=== PATIENT | female | born 1980 | race Caucasian/White ===

== ENCOUNTER 2018-05-03 14:46 | Emergency (ER) | payer MEDICAID, SELFPAY ==
[2018-05-03 14:51] VITALS: BP 150/93; PULSE 119; RESP 16; TEMP 37; O2SAT 95
--- NOTE | 2018-05-03 15:12 | DI.RAD_ITS ---
SYMPTOMS/DIAGNOSIS: FALL, STRUCK AREA NEAR T7 THORACIC SPINE: AP and lateral views. There is normal alignment of the thoracic spine. No acute fractures or subluxations are seen. The paraspinal lines are intact. IMPRESSION: Negative examination.
--- NOTE | 2018-05-03 15:12 | W.ED.GENAD ---
Discharge Plan Disposition Patient Disposition: HOME Condition: Fair Discharge Details Chief Complaint: Nk/Back Pain Clinical Impression: Contusion of back Primary Care Provider: Magda Espitia ED Provider: Lydia Mead Home Meds and New Rx's Prescriptions: Continue fluticasone [Allergy Relief (fluticasone)] 50 mcg/actuation spray,suspension 2 spray CHAN DAILY Qty: 15.8 RF: 0 magnesium oxide 400 MG capsule 400 mg PO DAILY Qty: 90 RF: 0 fluticasone [Flovent HFA] 10.6 GM HFA aerosol inhaler 44 mcg Inhalation BID Qty: 1 RF: 3 insulin glargine [Lantus Solostar U-100 Insulin] 100 UNIT/1 ML insulin pen Sub-Q bid DIRECTED MDD 95 units Qty: 6 RF: 1 insulin lispro [Humalog KwikPen Insulin] 200 UNIT/1 ML insulin pen SQ AC as directed MDD 162 UNITS Qty: 15 RF: 3 pen needle, diabetic [Pen Needle] 1 EACH needle 1 ea Miscellaneous 6 times daily Qty: 540 RF: 3 blood sugar diagnostic [FreeStyle Lite Strips] 1 EACH strip 1 ea Miscellaneous 5-6 times daily Qty: 450 RF: 3 liraglutide [Victoza 2-Brennan] 0.6 MG/0.1 ML pen injector 1.8 mg SQ DAILY RF: 0 fluticasone [Flonase Allergy Relief] 9.9 ML spray,suspension 1 - 2 spray NS DAILY Qty: 1 RF: 1 albuterol sulfate [ProAir HFA] 8.5 GM HFA aerosol inhaler 2 puff Inhalation Q4H PRN Qty: 1 RF: 1 atorvastatin 40 MG tablet 40 mg PO DAILY Qty: 90 RF: 3 L norgest/e.estradiol-e.estrad [Amethia] 1 EACH tablets,dose pack,3 month 1 tab-cap PO DAILY Qty: 1 RF: 4 valacyclovir 500 MG tablet 500 mg PO DAILY Qty: 90 RF: 4 Ascorbic Acid [Vitamin C] 500 MG capsule 500 mg PO DAILY RF: 0 ferrous sulfate 325 MG tablet 325 mg PO DAILY RF: 0 pioglitazone [Actos] 15 MG tablet 15 mg PO DAILY RF: 0 citalopram 20 MG tablet 20 mg PO DAILY Qty: 30 RF: 5 metformin 1,000 MG tablet 1,000 mg PO BID Qty: 180 RF: 3 omeprazole 20 mg capsule,delayed release(DR/EC) 20 mg PO DAILY Qty: 90 RF: 3 ibuprofen 600 MG tablet 600 mg PO Q6H PRN PRN (Reason: Pain) Qty: 30 RF: 0 Discharge Instructions Instructions: Contusion in Adults (ED) Additional Instructions: Encourage hydration. Tylenol and/or ibuprofen as needed for discomfort. Heat or ice to affected area. You may try topical patch such as Salonpas or LIdoderm patches. Gentle stretching and frequent ambulation to prevent muscle spasm. If you develop change in urinary or bowel habits, altered sensation, difficulty walking, fever/chills or other new/worsening symptoms please seek care urgently once again. Please follow-up with primary care in 1 week if symptoms have not improved Referrals: Magda Espitia NP [Primary Care Provider] - Discharge Data Discharge Date/Time-TO BE ENTERED AT DEPARTURE: 05/03/18 16:09 Medical Decision Making Patient a 38-year-old female, accompanied by her mother, with chief complaint of back pain. She reports partially 1 hour prior to arrival she was stepping out of a truck. Reports that she stepped onto a running board that was wet, subsequently slipped and fell striking her mid back against the running board. On exam, she is primarily tender over the T7 area although she indicates diffuse discomfort. She is moving well. No antalgic gait. Sensation, reflexes and strength are equal bilaterally lower extremities. No incontinence. Patient had ibuprofen earlier today for menstrual discomfort. We will augment this with Tylenol and Lidoderm patch. I do not see any focal area of skin discoloration or evidence of trauma. No step-off noted with palpation. Plan to obtain plain imaging to evaluate. Discussed this plan with the patient who is in agreement X-ray reviewed by radiologist. No acute bony pathology noted. Discussed findings with patient and her mother. Advised, as the pain seems to be quite mild, she is no evidence of trauma on exam and negative x-ray, I do not feel that further intervention at this time is necessary. She seems quite relieved with the negative x-rays. I encouraged gentle stretching and ambulation. Encourage use of Tylenol and ibuprofen as needed for discomfort. Patient is feeling improved after above medications. We also discussed topical and home remedies that may help with symptomatic management. She was given strict return precautions. All of her questions and concerns were addressed and she is in agreement this plan. HPI General Mode of arrival: ambulatory. Date/Time Provider Initiated Documentation: 05/03/18 14:59. Limitations to Documentation: no limitations. Information obtained by: patient and family. History of Present Illness 38 year old F presents to the emergency department with the chief complaint of back pain after fall, described as moderate, with intensity rated at 5. Quality is described as aching, and is localized to the back. Patient reports no radiation. Patient started experiencing this hour(s) (1) and it has been constant. No relieving factors improve symptom(s), No exacerbating factors reported . Patient notes no other symptoms.; denies chest pain, cough, fever/chills, headaches, nausea/vomiting, rash and shortness of breath. Patient did receive the following treatments prior to arrival, NSAID (took ibuprofen prior to fall for menstrual discomfort) Related Data Home Medications Medication Instructions Recorded Confirmed magnesium oxide 400 mg PO DAILY #90 tab 05/24/14 05/03/18 fluticasone [Flovent HFA] 44 mcg INHALATION BID #1 inhaler 03/04/15 05/03/18 ibuprofen 600 mg PO Q6H PRN PRN #30 tab 06/20/16 05/03/18 insulin glargine [Lantus Solostar 0 SUB-Q bid DIRECTED #6 box MDD 01/07/17 04/11/18 U-100 Insulin] 95 units insulin lispro [Humalog KwikPen 0 SQ AC as directed #15 box MDD 01/10/17 04/11/18 Insulin] 162 UNITS pen needle, diabetic [Pen Needle] #540 ndl 03/08/17 04/11/18 blood sugar diagnostic [FreeStyle #450 strip 03/11/17 04/11/18 Lite Strips] albuterol sulfate [ProAir HFA] 2 puff INHALATION Q4H PRN #1 03/29/17 05/03/18 inhaler fluticasone [Flonase Allergy 1 - 2 spray NS DAILY #1 bottle 03/29/17 05/03/18 Relief] liraglutide [Victoza 2-Brennan] 1.8 mg SQ DAILY ml 03/29/17 05/03/18 atorvastatin 40 mg PO DAILY #90 tab-cap 06/27/17 05/03/18 L norgest/e.estradiol-e.estrad 1 tab-cap PO DAILY #1 pack 08/28/17 05/03/18 [Amethia] valacyclovir 500 mg PO DAILY #90 tab-cap 09/13/17 05/03/18 Ascorbic Acid [Vitamin C] 500 mg PO DAILY 11/18/17 05/03/18 ferrous sulfate 325 mg PO DAILY tab 11/18/17 05/03/18 pioglitazone [Actos] 15 mg PO DAILY tab-cap 02/06/18 05/03/18 citalopram 20 mg PO DAILY #30 tab 02/07/18 05/03/18 metformin 1,000 mg PO BID #180 tab-cap 02/28/18 05/03/18 omeprazole 20 mg capsule,delayed 20 mg PO DAILY #90 tab 03/27/18 05/03/18 release fluticasone 50 mcg/actuation nasal 2 spray CHAN DAILY #15.8 gm 04/11/18 05/03/18 spray,suspension Previous Rx's Medication Instructions Recorded ibuprofen 600 mg PO Q6H PRN PRN #30 tab 06/20/16 albuterol sulfate [ProAir HFA] 2 puff INHALATION Q4H PRN #1 03/29/17 inhaler fluticasone [Flonase Allergy 1 - 2 spray NS DAILY #1 bottle 03/29/17 Relief] atorvastatin 40 mg PO DAILY #90 tab-cap 06/27/17 L norgest/e.estradiol-e.estrad 1 tab-cap PO DAILY #1 pack 08/28/17 [Amethia] valacyclovir 500 mg PO DAILY #90 tab-cap 09/13/17 citalopram 20 mg PO DAILY #30 tab 02/07/18 metformin 1,000 mg PO BID #180 tab-cap 02/28/18 omeprazole 20 mg capsule,delayed 20 mg PO DAILY #90 tab 03/27/18 release fluticasone 50 mcg/actuation nasal 2 spray CHAN DAILY #15.8 gm 04/11/18 spray,suspension Allergies Allergy/AdvReac Type Severity Reaction Status Date / Time glipizide AdvReac Intermediate nausea, Unverified 05/03/18 14:54 vomiting, diarrhea prazosin AdvReac Unknown heart Unverified 05/03/18 14:54 palpitations General Stated Complaint: Nk/Back Pain FELIBERTO: 4 Review of Systems Constitutional Reports as per HPI and Denies headache(s) ENT Denies dizziness and Denies headache(s) Cardiovascular Reports as per HPI, Denies chest pain, Denies syncope, Denies dyspnea and Denies dyspnea on exertion Respiratory Reports as per HPI, Denies cough, Denies dyspnea and Denies dyspnea on exertion Gastrointestinal Denies abdominal pain, Denies nausea and Denies vomiting Genitourinary Denies urinary incontinence Musculoskeletal Reports as per HPI, Denies abnormal gait and Denies numbness Integumentary/Breasts Reports as per HPI, Denies erythema, Denies rash, Denies skin pain and Denies skin swelling Neurologic Reports as per HPI, Denies abnormal movements, Denies abnormal gait, Denies dizziness, Denies syncope, Denies headache(s), Denies lack of coordination, Denies focal weakness, Denies numbness and Denies radicular pain PFSH Social History adopted: No foster care: No household members: other details: lives w/ mom and dad and twins 5 at home number of children: 2 current occupational status: employed current occupation: [employer] Hx Recent Travel: No Smoking/Tobacco Use Status: Never alcohol intake: never substance use type: does not use seatbelt use: always Exam Const General: cooperative, healthy appearing, comfortable, no acute distress, well developed and well groomed Nutritional Appearance: well nourished and overweight Orientation: alert and awake [facility] Head: normal to inspection, normocephalic and atraumatic Ears: hearing grossly normal bilaterally Eyes General: appearance normal, both eyes and all related structures Neck Neck: normal visual inspection and full ROM Chest Chest: normal inspection of the chest, no crepitus, no localized rib tenderness and no tenderness Resp Effort & Inspection: normal respiratory effort, able to speak in complete sentences and no respiratory distress Auscultation: clear to auscultation bilaterally, no rales, no rhonchi and no wheezes Cardio Rate: regular rate Rhythm: regular rhythm Heart Sounds: S1 normal and S2 normal Back/Spine/Pelvis Back: no CVA tenderness Cervical Spine: normal cervical lordosis and cervical ROM normal Thoracic/Lumbar Spine: No thoracic and lumbar spine normal to inspection (Patient is diffusely tender over the thoracic spine wrapping laterally. Point tender midline over the T7 area. No swelling, ecchymosis, break in the skin. ), thoraco-lumbar ROM normal, pain with thoraco-lumbar ROM (patient has some discomfort with forward flexion), No paraspinal tenderness and No thoraco-lumbar ROM limited Skin General skin exam: no rashes or lesions noted Neuro General: alert, awake and oriented x3 Cognition: normal cognition Speech: speech normal Gait: normal gait Motor: muscle tone normal throughout and strength 5/5 throughout Sensory Exam: no sensory deficits noted (no saddle paresthesias) Extrem General: normal to inspection (strength, sensation and reflexes equal bilaterally) Psych Appearance: grossly normal and well kempt Mental Status: mental status grossly normal Speech and Movement: speech and movement normal Course Vital Signs Temperature 37 C 05/03/18 14:51 Pulse 119 H 05/03/18 14:51 Respiratory Rate 16 05/03/18 14:51 Blood Pressure 150/93 H 05/03/18 14:51 Pulse Oximetry 95 05/03/18 14:51 Temperature 37 C 05/03/18 14:51 Temperature Source Skin 05/03/18 14:51 Pulse 119 H 05/03/18 14:51 Respiratory Rate 16 05/03/18 14:51 Respiratory Effort 05/03/18 14:51 Blood Pressure 150/93 H 05/03/18 14:51 Pulse Oximetry 95 05/03/18 14:51 Oxygen Delivery Method Room Air 05/03/18 14:51 Oxygen Flow Rate 0 05/03/18 14:51 Pain Level 5 05/03/18 15:00
--- NOTE | 2018-05-03 15:15 | ED.GENADUL_ITS ---
Discharge Plan Disposition Patient Disposition: HOME Condition: Fair Discharge Details Chief Complaint: Nk/Back Pain Clinical Impression: Contusion of back Primary Care Provider: Magda Espitia ED Provider: Lydia Mead Home Meds and New Rx's Prescriptions: Continue fluticasone [Allergy Relief (fluticasone)] 50 mcg/actuation spray,suspension 2 spray CHAN DAILY Qty: 15.8 RF: 0 magnesium oxide 400 MG capsule 400 mg PO DAILY Qty: 90 RF: 0 fluticasone [Flovent HFA] 10.6 GM HFA aerosol inhaler 44 mcg Inhalation BID Qty: 1 RF: 3 insulin glargine [Lantus Solostar U-100 Insulin] 100 UNIT/1 ML insulin pen Sub-Q bid DIRECTED MDD 95 units Qty: 6 RF: 1 insulin lispro [Humalog KwikPen Insulin] 200 UNIT/1 ML insulin pen SQ AC as directed MDD 162 UNITS Qty: 15 RF: 3 pen needle, diabetic [Pen Needle] 1 EACH needle 1 ea Miscellaneous 6 times daily Qty: 540 RF: 3 blood sugar diagnostic [FreeStyle Lite Strips] 1 EACH strip 1 ea Miscellaneous 5-6 times daily Qty: 450 RF: 3 liraglutide [Victoza 2-Brennan] 0.6 MG/0.1 ML pen injector 1.8 mg SQ DAILY RF: 0 fluticasone [Flonase Allergy Relief] 9.9 ML spray,suspension 1 - 2 spray NS DAILY Qty: 1 RF: 1 albuterol sulfate [ProAir HFA] 8.5 GM HFA aerosol inhaler 2 puff Inhalation Q4H PRN Qty: 1 RF: 1 atorvastatin 40 MG tablet 40 mg PO DAILY Qty: 90 RF: 3 L norgest/e.estradiol-e.estrad [Amethia] 1 EACH tablets,dose pack,3 month 1 tab-cap PO DAILY Qty: 1 RF: 4 valacyclovir 500 MG tablet 500 mg PO DAILY Qty: 90 RF: 4 Ascorbic Acid [Vitamin C] 500 MG capsule 500 mg PO DAILY RF: 0 ferrous sulfate 325 MG tablet 325 mg PO DAILY RF: 0 pioglitazone [Actos] 15 MG tablet 15 mg PO DAILY RF: 0 citalopram 20 MG tablet 20 mg PO DAILY Qty: 30 RF: 5 metformin 1,000 MG tablet 1,000 mg PO BID Qty: 180 RF: 3 omeprazole 20 mg capsule,delayed release(DR/EC) 20 mg PO DAILY Qty: 90 RF: 3 ibuprofen 600 MG tablet 600 mg PO Q6H PRN PRN (Reason: Pain) Qty: 30 RF: 0 Discharge Instructions Instructions: Contusion in Adults (ED) Additional Instructions: Encourage hydration. Tylenol and/or ibuprofen as needed for discomfort. Heat or ice to affected area. You may try topical patch such as Salonpas or LIdoderm patches. Gentle stretching and frequent ambulation to prevent muscle spasm. If you develop change in urinary or bowel habits, altered sensation, difficulty walking, fever/chills or other new/worsening symptoms please seek care urgently once again. Please follow-up with primary care in 1 week if symptoms have not improved Referrals: Magda Espitia NP [Primary Care Provider] - Discharge Data Discharge Date/Time-TO BE ENTERED AT DEPARTURE: 05/03/18 16:09 Medical Decision Making Patient a 38-year-old female, accompanied by her mother, with chief complaint of back pain. She reports partially 1 hour prior to arrival she was stepping out of a truck. Reports that she stepped onto a running board that was wet, subsequently slipped and fell striking her mid back against the running board. On exam, she is primarily tender over the T7 area although she indicates diffuse discomfort. She is moving well. No antalgic gait. Sensation, reflexes and strength are equal bilaterally lower extremities. No incontinence. Patient had ibuprofen earlier today for menstrual discomfort. We will augment this with Tylenol and Lidoderm patch. I do not see any focal area of skin discoloration or evidence of trauma. No step-off noted with palpation. Plan to obtain plain imaging to evaluate. Discussed this plan with the patient who is in agreement X-ray reviewed by radiologist. No acute bony pathology noted. Discussed findings with patient and her mother. Advised, as the pain seems to be quite mild, she is no evidence of trauma on exam and negative x-ray, I do not feel that further intervention at this time is necessary. She seems quite relieved with the negative x-rays. I encouraged gentle stretching and ambulation. Encourage use of Tylenol and ibuprofen as needed for discomfort. Patient is feeling improved after above medications. We also discussed topical and home remedies that may help with symptomatic management. She was given strict return precautions. All of her questions and concerns were addressed and she is in agreement this plan. HPI General Mode of arrival: ambulatory . Date/Time Provider Initiated Documentation: 05/03/18 14:59 . Limitations to Documentation: no limitations . Information obtained by: patient and family . History of Present Illness 38 year old F presents to the emergency department with the chief complaint of back pain after fall, described as moderate, with intensity rated at 5. Quality is described as aching, and is localized to the back. Patient reports no radiation. Patient started experiencing this hour(s) (1) and it has been constant. No relieving factors improve symptom(s), No exacerbating factors reported . Patient notes no other symptoms.; denies chest pain, cough , fever/chills, headaches, nausea/vomiting, rash and shortness of breath. Patient did receive the following treatments prior to arrival, NSAID (took ibuprofen prior to fall for menstrual discomfort) Related Data Home Medications Medication Instructions Recorded Confirmed magnesium oxide 400 mg PO DAILY #90 tab 05/24/14 05/03/18 fluticasone [Flovent HFA] 44 mcg INHALATION BID #1 inhaler 03/04/15 05/03/18 ibuprofen 600 mg PO Q6H PRN PRN #30 tab 06/20/16 05/03/18 insulin glargine [Lantus Solostar 0 SUB-Q bid DIRECTED #6 box MDD 01/07/17 U-100 Insulin] 95 units insulin lispro [Humalog KwikPen 0 SQ AC as directed #15 box MDD 01/10/17 Insulin] 162 UNITS pen needle, diabetic [Pen Needle] #540 ndl 03/08/17 04/11/18 blood sugar diagnostic [FreeStyle #450 strip 03/11/17 04/11/18 Lite Strips] albuterol sulfate [ProAir HFA] 2 puff INHALATION Q4H PRN #1 03/29/17 05/03/18 inhaler fluticasone [Flonase Allergy 1 - 2 spray NS DAILY #1 bottle 03/29/17 05/03/18 Relief] liraglutide [Victoza 2-Brennan] 1.8 mg SQ DAILY ml 03/29/17 05/03/18 atorvastatin 40 mg PO DAILY #90 tab-cap 06/27/17 05/03/18 L norgest/e.estradiol-e.estrad 1 tab-cap PO DAILY #1 pack 08/28/17 05/03/18 [Amethia] valacyclovir 500 mg PO DAILY #90 tab-cap 09/13/17 05/03/18 Ascorbic Acid [Vitamin C] 500 mg PO DAILY 11/18/17 05/03/18 ferrous sulfate 325 mg PO DAILY tab 11/18/17 05/03/18 pioglitazone [Actos] 15 mg PO DAILY tab-cap 02/06/18 05/03/18 citalopram 20 mg PO DAILY #30 tab 02/07/18 05/03/18 metformin 1,000 mg PO BID #180 tab-cap 02/28/18 05/03/18 omeprazole 20 mg capsule,delayed 20 mg PO DAILY #90 tab 03/27/18 05/03/18 release fluticasone 50 mcg/actuation nasal 2 spray CHAN DAILY #15.8 gm 04/11/18 05/03/18 spray,suspension Previous Rx's Medication Instructions Recorded ibuprofen 600 mg PO Q6H PRN PRN #30 tab 06/20/16 albuterol sulfate [ProAir HFA] 2 puff INHALATION Q4H PRN #1 03/29/17 inhaler fluticasone [Flonase Allergy 1 - 2 spray NS DAILY #1 bottle 03/29/17 Relief] atorvastatin 40 mg PO DAILY #90 tab-cap 06/27/17 L norgest/e.estradiol-e.estrad 1 tab-cap PO DAILY #1 pack 08/28/17 [Amethia] valacyclovir 500 mg PO DAILY #90 tab-cap 09/13/17 citalopram 20 mg PO DAILY #30 tab 02/07/18 metformin 1,000 mg PO BID #180 tab-cap 02/28/18 omeprazole 20 mg capsule,delayed 20 mg PO DAILY #90 tab 03/27/18 release fluticasone 50 mcg/actuation nasal 2 spray CHAN DAILY #15.8 gm 04/11/18 spray,suspension Allergies Allergy/AdvReac Type Severity Reaction Status Date / Time glipizide AdvReac Intermediate nausea, Unverified 05/03/18 14:54 vomiting, diarrhea prazosin AdvReac Unknown heart Unverified 05/03/18 14:54 palpitations General Stated Complaint: Nk/Back Pain FELIBERTO: 4 Review of Systems Constitutional Reports as per HPI and Denies headache(s) ENT Denies dizziness and Denies headache(s) Cardiovascular Reports as per HPI, Denies chest pain, Denies syncope, Denies dyspnea and Denies dyspnea on exertion Respiratory Reports as per HPI, Denies cough, Denies dyspnea and Denies dyspnea on exertion Gastrointestinal Denies abdominal pain, Denies nausea and Denies vomiting Genitourinary Denies urinary incontinence Musculoskeletal Reports as per HPI, Denies abnormal gait and Denies numbness Integumentary/Breasts Reports as per HPI, Denies erythema, Denies rash, Denies skin pain and Denies skin swelling Neurologic Reports as per HPI, Denies abnormal movements, Denies abnormal gait, Denies dizziness, Denies syncope, Denies headache(s), Denies lack of coordination, Denies focal weakness, Denies numbness and Denies radicular pain PFSH Social History adopted: No foster care: No household members: other details: lives w/ mom and dad and twins 5 at home number of children: 2 current occupational status: employed current occupation: [employer] Hx Recent Travel: No Smoking/Tobacco Use Status: Never alcohol intake: never substance use type: does not use seatbelt use: always Exam Const General: cooperative, healthy appearing, comfortable, no acute distress, well developed and well groomed Nutritional Appearance: well nourished and overweight Orientation: alert and awake [facility] Head: normal to inspection, normocephalic and atraumatic Ears: hearing grossly normal bilaterally Eyes General: appearance normal, both eyes and all related structures Neck Neck: normal visual inspection and full ROM Chest Chest: normal inspection of the chest, no crepitus, no localized rib tenderness and no tenderness Resp Effort & Inspection: normal respiratory effort, able to speak in complete sentences and no respiratory distress Auscultation: clear to auscultation bilaterally, no rales, no rhonchi and no wheezes Cardio Rate: regular rate Rhythm: regular rhythm Heart Sounds: S1 normal and S2 normal Back/Spine/Pelvis Back: no CVA tenderness Cervical Spine: normal cervical lordosis and cervical ROM normal Thoracic/Lumbar Spine: No thoracic and lumbar spine normal to inspection ( Patient is diffusely tender over the thoracic spine wrapping laterally. Point tender midline over the T7 area. No swelling, ecchymosis, break in the skin. ), thoraco-lumbar ROM normal, pain with thoraco-lumbar ROM (patient has some discomfort with forward flexion), No paraspinal tenderness and No thoraco- lumbar ROM limited Skin General skin exam: no rashes or lesions noted Neuro General: alert, awake and oriented x3 Cognition: normal cognition Speech: speech normal Gait: normal gait Motor: muscle tone normal throughout and strength 5/5 throughout Sensory Exam: no sensory deficits noted (no saddle paresthesias) Extrem General: normal to inspection (strength, sensation and reflexes equal bilaterally) Psych Appearance: grossly normal and well kempt Mental Status: mental status grossly normal Speech and Movement: speech and movement normal Course Vital Signs Temperature 37 C 05/03/18 14:51 Pulse 119 H 05/03/18 14:51 Respiratory Rate 16 05/03/18 14:51 Blood Pressure 150/93 H 05/03/18 14:51 Pulse Oximetry 95 05/03/18 14:51 Temperature 37 C 05/03/18 14:51 Temperature Source Skin 05/03/18 14:51 Pulse 119 H 05/03/18 14:51 Respiratory Rate 16 05/03/18 14:51 Respiratory Effort 05/03/18 14:51 Blood Pressure 150/93 H 05/03/18 14:51 Pulse Oximetry 95 05/03/18 14:51 Oxygen Delivery Method Room Air 05/03/18 14:51 Oxygen Flow Rate 0 05/03/18 14:51 Pain Level 5 05/03/18 15:00
[2018-05-03] MEDS: Acetaminophen 500 MG TAB 1000 MG PO (15:18)
[2018-05-03] MEDS: Lidocaine 5% Patch 1 PATCH TP (15:18)
--- NOTE | 2018-05-03 15:44 | DI.VRAD_ITS ---
EXAM: XR Thoracic Spine, 3 Views EXAM DATE/TIME: 05/03/2018 3:32 PM CLINICAL HISTORY: 38 years old, female; Pain; Pain in thoracic spine; Patient HX: Per PT: Fell out of truck onto running board; Struck area near t7 TECHNIQUE: XR of the thoracic spine, 3 views. COMPARISON: [facility] 06/20/2016 5:07 PM FINDINGS: No acute fracture. No subluxation. Paraspinous soft tissues unremarkable. IMPRESSION: No evidence of acute bony abnormality. Dictated and Authenticated by: Viral Barboza MD. Ordering:BARBARA VALDES MD
== END 2018-05-03 16:09 | disposition home or self-care (01) ==
PROVIDERS: Emergency Provider Physician Assistant; PCP Nurse Practitioner
DX: S20.229A Contusion of unspecified back wall of thorax, initial encounter (principal); W17.81XA Fall down embankment (hill), initial encounter
CPT/HCPCS: 99283; 72072; 99282

== ENCOUNTER 2018-08-26 08:42 | Outpatient (RCR) | payer SELFPAY | END 2018-08-28 23:59 | disposition home or self-care (01) | LOC: CR 08:42 | PROVIDERS: PCP Nurse Practitioner; Visit Provider Family Medicine | DX: Z51.89 Encounter for other specified aftercare (principal) ==

== ENCOUNTER 2018-09-11 13:19 | Outpatient (RCR) | payer SELFPAY ==
--- NOTE | 2018-11-25 09:42 | PR3E_ITS ---
38 year old female referred to our 8 week diabetes exercise program in August 2018 by primary care provider. Patient was scheduled for 8 exercise sessions from 09/02/18 - 09/25/18, of which she attended 3, then did not return. Patient had joined program and started same time as her mother. Both attended 3 sessions together; both stopped attending thereafter. The patient is being discharged from the Diabetes Program. We will assist her again in the future, with a physicians referral, should she need more structure in developing an exercise routine/habits.
== END 2018-09-28 23:59 | disposition home or self-care (01) ==
LOC: CR 13:19
PROVIDERS: PCP Nurse Practitioner; Visit Provider Family Medicine
DX: Z51.89 Encounter for other specified aftercare (principal)

== ENCOUNTER 2018-09-30 03:30 | Outpatient (RCR) | payer SELFPAY | END 2018-10-28 23:59 | disposition home or self-care (01) | LOC: CR 03:30 | PROVIDERS: PCP Nurse Practitioner; Visit Provider Family Medicine | DX: Z51.89 Encounter for other specified aftercare (principal) ==

== ENCOUNTER 2018-12-03 08:22 | Outpatient (CLI) | payer MEDICAID, SELFPAY ==
[2018-12-03 09:37] LABS: COMMENT (LAB VIEW ONLY) 222.58 mg/dL; Microalb ug/mg Crea 8.7 ug/mg Cr
[2018-12-03 09:38] LABS: ALT 43 U/L (12-78); AST 36 U/L (15-37); Albumin 3.5 g/dL (3.4-5.0); Alkaline Phosphatase 123 U/L (46-116); Anion Gap 12.4 mmol/L (3-11); BUN 10 mg/dL (7-18); Bilirubin, Total 0.8 mg/dL (0.2-1.0); CO2 23.6 mmol/L (21.0-32.0); CREATININE 0.74 mg/dL (0.55-1.02); Calcium 8.8 mg/dL (8.5-10.1); Calculated LDL 77; Chloride 100 mmol/L (98-107); Cholesterol 146 mg/dL (50-200); Glucose 298 mg/dL (70-100); HDL Cholesterol 33 mg/dL (40-60); Potassium 4.1 mmol/L (3.5-5.1); Sodium 136 mmol/L (136-145); Triglyceride 182 mg/dL (30-150)
== END 2018-12-03 08:42 ==
PROVIDERS: PCP Nurse Practitioner; Visit Provider Nurse Practitioner
DX: E11.9 Type 2 diabetes mellitus without complications (principal); E78.5 Hyperlipidemia, unspecified
CPT/HCPCS: 36415; 80053; 80061; 83721; 82043; 82570

== ENCOUNTER 2019-01-15 17:26 | Outpatient (REF) | payer MEDICAID, SELFPAY ==
[2019-01-19 14:52] LABS: Chlamydia Result Negative; GC Result Negative; Specimen Description CERVIX
== END 2019-01-15 17:46 ==
LOC: LBN 17:26
PROVIDERS: PCP Nurse Practitioner; Visit Provider Nurse Practitioner Women's Health
DX: Z11.3 Encounter for screening for infections with a predominantly sexual mode of transmission (principal)
CPT/HCPCS: 87491; 87591

== ENCOUNTER 2019-01-22 07:05 | Outpatient (CLI) | payer MEDICAID, SELFPAY ==
[2019-01-22 07:25] LABS: Mean Corp. HGB Concentration 33.3 g/dL (32.0-36.0); Mean Corpuscular Hemoglobin 30.8 pg (27.0-33.0); Mean Corpuscular Volume 92.3 fL (80-95); Mean Platelet Volume 9.8 fL (8.0-11.0); Platelet Count 324 x1000/uL (130-400); RBC 4.55 m/cumm (4.00-5.20); RBC Distribution Width 12.7 % (11.7-14.6); White Blood Cell Count 6.63 k/cumm (4.4-10.8)
[2019-01-22 08:56] LABS: ESR 27 mm/hr (0-20)
[2019-01-22 10:35] LABS: ALT 44 U/L (12-78); AST 36 U/L (15-37); Albumin 3.4 g/dL (3.4-5.0); Alkaline Phosphatase 130 U/L (46-116); Anion Gap 12.5 mmol/L (3-11); BUN 10 mg/dL (7-18); Bilirubin, Total 0.7 mg/dL (0.2-1.0); CO2 21.5 mmol/L (21.0-32.0); CREATININE 0.78 mg/dL (0.55-1.02); Chloride 102 mmol/L (98-107); Ferritin 104 ng/mL (8-388); Glucose 336 mg/dL (70-100); Potassium 4.5 mmol/L (3.5-5.1); Sodium 136 mmol/L (136-145); TSH (W/Ref FT4) 1.63 uIU/mL (0.36-3.74); Total Protein 6.6 g/dL (6.4-8.2); Vitamin B12 801 pg/mL (193-986)
[2019-01-23 10:54] LABS: Lyme Ab w Rflx to Lyme Confirm Negative
== END 2019-01-22 07:25 ==
PROVIDERS: PCP Nurse Practitioner; Visit Provider Nurse Practitioner
DX: M25.50 Pain in unspecified joint (principal); R07.89 Other chest pain; R53.83 Other fatigue; R60.9 Edema, unspecified; I10 Essential (primary) hypertension
CPT/HCPCS: 36415; 80053; 85027; 85652; 82607; 82728; 84443; 86618

== ENCOUNTER 2019-03-19 00:53 | Outpatient (CLI) | payer MEDICAID, SELFPAY ==
--- NOTE | 2019-03-19 07:52 | DI.US_ITS ---
EXAM: US PELVIS TRANSVAGINAL CLINICAL HISTORY: AUB, polyp at cervix,N93.9,N84.1. TECHNIQUE: Ultrasound performed using standard protocol. COMPARISON: from 02/04/2017 FINDINGS: Uterus measures 6.3 cm in length, 2.7 cm in height and 4.0 cm in width with an endometrial stripe thi ckness of 11 mm. There is an apparent 9 x 6 x 9 mm fundal fibroid. The right ovary measures 3 x 2.1 x 1.8 cm and contains a 2.3 x 1.8 x 1.6 cm cyst. The left ovary hay sures 1.9 x 1.0 x 1.3 cm. The right kidney measures 11 cm., The left kidney measures 13.4 cm. There i s no evidence of hydronephrosis. There is no evidence of pelvic free fluid. IMPRESSION: A small fundal fibroid is demonstrated and there is a 2.3 x 1.8 x 1.6 cm right ovarian cyst.
== END 2019-03-19 01:13 ==
PROVIDERS: PCP Nurse Practitioner; Visit Provider Nurse Practitioner Women's Health
DX: N84.1 Polyp of cervix uteri (principal); N93.9 Abnormal uterine and vaginal bleeding, unspecified; D25.9 Leiomyoma of uterus, unspecified; N83.291 Other ovarian cyst, right side
CPT/HCPCS: 76830; 76856

== ENCOUNTER 2019-04-01 10:28 | Outpatient (CLI) | payer MEDICAID, SELFPAY ==
--- NOTE | 2019-04-01 10:30 | DI.RAD_ITS ---
EXAM: XR HIP LT COMPLETE AP PELVIS INDICATION: Left hip pain for 2 days, no injury M25.552. COMPARISON: PELVIS AP from 06/20/2016 TECHNIQUE: 2D digital imaging was performed. FINDINGS: The left hip is well maintained. The bones are normally mineralized. No suspicious lytic or sclerot ic lesion is identified. Sacroiliac joints and symphysis pubis are well maintained. The soft tissue s are unremarkable. IMPRESSION: No acute abnormality.
== END 2019-04-01 10:48 ==
PROVIDERS: PCP Nurse Practitioner; Visit Provider Nurse Practitioner
DX: M25.552 Pain in left hip (principal)
CPT/HCPCS: 73502

== ENCOUNTER 2019-05-03 09:53 | Emergency (ER) | payer MEDICAID, SELFPAY ==
[2019-05-03 10:03] VITALS: BP 138/84; PULSE 100; RESP 16; TEMP 36.4; O2SAT 99
--- NOTE | 2019-05-03 10:16 | ED.GENADUL_ITS ---
Discharge Plan Disposition Patient Disposition: HOME Condition: Improving Discharge Details Chief Complaint: Nk/Back Pain Clinical Impression: Back pain, Muscle spasm Primary Care Provider: Magda Espitia ED Provider: Lydia eMad Home Meds and New Rx's Prescriptions: New cyclobenzaprine 10 mg tablet 10 mg PO TID PRN (Reason: muscle spasm) Qty: 14 RF: 0 Continued citalopram 40 mg tablet 40 mg PO DAILY Qty: 90 RF: 3 L norgest/e.estradiol-e.estrad [Camrese] 0.15 mg-30 mcg (84)/10 mcg (7) tablets,dose pack,3 month 1 tab PO DAILY Qty: 91 RF: 5 trazodone 50 mg tablet 50 mg PO HS PRN (Reason: insomnia) Qty: 90 RF: 3 albuterol sulfate [ProAir HFA] 90 mcg/actuation HFA aerosol inhaler 2 puff Inhalation Q4H PRN Qty: 1 RF: 1 (DME) pen needle, diabetic [Pen Needle] 31 gauge x 5/16 needle 1 ea Miscellaneous 6 times daily Qty: 550 RF: 3 (DME) FreeStyle Lite Strips strip 1 ea Miscellaneous 5-6 times daily Qty: 450 RF: 3 fluticasone propionate [Allergy Relief (fluticasone)] 50 mcg/actuation spray,suspension 2 spray CHAN DAILY Qty: 15.8 RF: 0 ondansetron HCl [Zofran] 4 mg tablet 4 mg PO QID PRN (Reason: nausea and vomiting) Qty: 20 RF: 0 Humalog KwikPen Insulin 200 unit/mL (3 mL) insulin pen 20 unit subcut TID MDD 162 UNITS Qty: 15 RF: 12 Victoza 2-Brennan 0.6 mg/0.1 mL (18 mg/3 mL) pen injector 1.8 mg subcut DAILY Qty: 6 RF: 12 magnesium oxide 400 MG capsule 400 mg PO DAILY Qty: 90 RF: 0 valacyclovir 500 MG tablet 500 mg PO DAILY Qty: 90 RF: 4 Ascorbic Acid [Vitamin C] 500 MG capsule 500 mg PO DAILY RF: 0 ferrous sulfate 325 MG tablet 325 mg PO DAILY RF: 0 pioglitazone [Actos] 15 MG tablet 15 mg PO DAILY RF: 0 omeprazole 20 mg capsule,delayed release(DR/EC) 20 mg PO DAILY Qty: 90 RF: 3 Lantus Solostar U-100 Insulin 100 unit/mL (3 mL) insulin pen See Rx Instructions Sub-Q BID MDD 95 units Qty: 15 RF: 3 atorvastatin 40 mg tablet 40 mg PO DAILY Qty: 90 RF: 3 fluconazole [Diflucan] 150 mg tablet 150 mg PO ONCE Qty: 1 RF: 1 metformin 1,000 mg tablet 1,000 mg PO BID Qty: 180 RF: 3 ibuprofen 600 MG tablet 600 mg PO Q6H PRN PRN (Reason: Pain) Qty: 30 RF: 0 Discharge Instructions Instructions: Muscle Spasm (ED), Back Pain (ED) Additional Instructions: Encourage hydration. Tylenol and/or ibuprofen as needed for discomfort. Flexeril as prescribed to help with muscle spasm. Please do not drive will take this medication. May make you fatigued. Please encourage frequent walking and gentle stretching. You may continue with topical patches such as Salonpas or Lidoderm as needed for discomfort. Please avoid heavy lifting and activities that greatly increase her discomfort. Please follow-up with primary care in 1 week if not improved. If you develop fever/chills, increased pain, weakness or other new/worsening symptoms please seek care urgently once again. Stand Alone Forms: Work Release Referrals: Magda Espitia NP [Primary Care Provider] - Medical Decision Making Patient is a 39 year old female presenting today with c/c of low back pain. States that yesterday it felt tight. No recent trauma. Reports that 1 hour prior to arrival, she bent forward to unhook her dog's collar when she had a gaston dden onset of pain that radiated across the entire lumbar spine. Did not fall. Denies any altered sensation. No difficulty with ambulation. States the pain is now a 10 out of 10. Particularly painful with forward flexion. States the pain does radiate into the buttock bilaterally. Patient was seen here one year ago after fall and trauma to htis area but she denies residual pain since then. No recent illness, no fevers/chills. No GI upset. Denies change in urainry or bowel habits. On exam, patient is resting comfortably. She does feel tight and has tenderness with palpation reviewed the lumbar spine does not endorse any midline or paraspinal tenderness. Her history and exam is most consistent with muscle spasm. She has no saddle paresthesias, no evidence of cauda equina or other e mergent surgical pathology. Patient was given Tylenol, ibuprofen, Valium and a Lidoderm patch reports that pain is now down to 5 out of 10. She finds mobility more easy. Appears to be moving well about the room. She is currently requesting discharge. She is given strict return precautions. We will continue with the muscle relaxer. Advised that she may not drive while taking this. I encouraged hydration. We discussed home and fzzd-smm-ahmepco medications that can help with analgesics. Advise follow-up with primary care at the end of the week if not improving. All of her questions and concerns were addressed she is in agreement this plan. [facility] General Mode of arrival: ambulatory . Date/Time Provider Initiated Documentation: 05/03/19 10:13 . Limitations to Documentation: no limitations . Information obtained by: patient, family (signifciant other) and RN notes reviewed . History of Present Illness 39 year old F presents to the emergency department with the chief complaint of low back pain, described as severe, with intensity rated at 10. Quality is described as stabbing, and is localized to the back. Patient reports radiation to (into buttock bilater ally). Patient started experiencing this hour(s) (1) and it has been constant. Immobilization improves symptom(s), Movement worsens symptoms . Patient notes no other symptoms.. Patient did receive the following treatments prior to arrival, none Related Data Home Medications Medication Instructions Recorded Confirmed magnesium oxide 400 mg PO DAILY #90 tab 05/24/14 05/03/19 ibuprofen 600 mg PO Q6H PRN PRN #30 tab 06/20/16 05/03/19 valacyclovir 500 mg PO DAILY #90 tab-cap 09/13/17 05/03/19 Ascorbic Acid [Vitamin C] 500 mg PO DAILY 11/18/17 05/03/19 ferrous sulfate 325 mg PO DAILY tab 11/18/17 05/03/19 pioglitazone [Actos] 15 mg PO DAILY tab-cap 02/06/18 05/03/19 omeprazole 20 mg capsule,delayed 20 mg PO DAILY #90 tab 03/27/18 05/03/19 release fluticasone propionate 50 2 spray CHAN DAILY #15.8 gm 04/11/18 05/03/19 mcg/actuation nasal spray,suspension albuterol sulfate 90 mcg/actuation 2 puff INHALATION Q4H PRN #1 06/09/18 05/03/19 aerosol inhaler inhaler blood sugar diagnostic #450 strip 06/09/18 04/01/19 pen needle, diabetic 31 gauge x #550 each 06/09/18 04/01/1911/13 trazodone 50 mg tablet 50 mg PO HS PRN #90 tab 06/09/18 05/03/19 insulin glargine 100 unit/mL (3 See Rx Instructions SUB-Q BID #15 09/05/18 05/03/19 mL) subcutaneous pen ml MDD 95 units atorvastatin 40 mg tablet 40 mg PO DAILY #90 tab-cap 09/29/18 05/03/19 citalopram 40 mg tablet 40 mg PO DAILY #90 tab 10/22/18 05/03/19 ondansetron HCl 4 mg tablet 4 mg PO QID PRN #20 tab 11/18/18 05/03/19 insulin lispro 200 unit/mL (3 mL) 20 unit SUBCUT TID #15 ml MDD 162 12/02/18 05/03/19 subcutaneous pen UNITS liraglutide 0.6 mg/0.1 mL (18 mg/3 1.8 mg SUBCUT DAILY #6 ml 12/02/18 05/03/19 mL) subcutaneous pen injector L norgest/e.estradiol-e.estrad 1 tab PO DAILY #91 dose pk 01/15/19 05/03/19 0.15 mg-30 mcg (84)/10 mcg(7) tabs,3mos fluconazole 150 mg tablet 150 mg PO ONCE #1 tab 02/13/19 05/03/19 metformin 1,000 mg tablet 1,000 mg PO BID #180 tab-cap 04/27/19 05/03/19 cyclobenzaprine 10 mg PO TID PRN #14 tab 05/03/19 Previous Rx's Medication Instructions Recorded ibuprofen 600 mg PO Q6H PRN PRN #30 tab 06/20/16 valacyclovir 500 mg PO DAILY #90 tab-cap 09/13/17 omeprazole 20 mg capsule,delayed 20 mg PO DAILY #90 tab 03/27/18 release fluticasone propionate 50 2 spray CHAN DAILY #15.8 gm 04/11/18 mcg/actuation nasal spray,suspension albuterol sulfate 90 mcg/actuation 2 puff INHALATION Q4H PRN #1 06/09/18 aerosol inhaler inhaler blood sugar diagnostic #450 strip 06/09/18 pen needle, diabetic 31 gauge x #550 each 06/09/18 5/16 trazodone 50 mg tablet 50 mg PO HS PRN #90 tab 06/09/18 insulin glargine 100 unit/mL (3 See Rx Instructions SUB-Q BID #15 09/05/18 mL) subcutaneous pen ml MDD 95 units atorvastatin 40 mg tablet 40 mg PO DAILY #90 tab-cap 09/29/18 citalopram 40 mg tablet 40 mg PO DAILY #90 tab 10/22/18 ondansetron HCl 4 mg tablet 4 mg PO QID PRN #20 tab 11/18/18 insulin lispro 200 unit/mL (3 mL) 20 unit SUBCUT TID #15 ml MDD 162 12/02/18 subcutaneous pen UNITS liraglutide 0.6 mg/0.1 mL (18 mg/3 1.8 mg SUBCUT DAILY #6 ml 12/02/18 mL) subcutaneous pen injector L norgest/e.estradiol-e.estrad 1 tab PO DAILY #91 dose pk 01/15/19 0.15 mg-30 mcg (84)/10 mcg(7) tabs,3mos fluconazole 150 mg tablet 150 mg PO ONCE #1 tab 02/13/19 metformin 1,000 mg tablet 1,000 mg PO BID #180 tab-cap 04/27/19 cyclobenzaprine 10 mg PO TID PRN #14 tab 05/03/19 Allergies Allergy/AdvReac Type Severity Reaction Status Date / Time glipizide AdvReac Intermediate nausea, Verified 05/03/19 10:05 vomiting, diarrhea prazosin AdvReac Unknown heart Verified 05/03/19 10:05 palpitations General Stated Complaint: Nk/Back Pain FELIBERTO: 4 Review of Systems Constitutional Constitutional: Reports as per HPI, Denies chills, Denies fatigue, Denies fever(s), Denies frequent falls and Denies headache(s) Eyes Eyes: Denies change in vision ENT Ears, Nose, Mouth, and Throat: Denies headache(s) Cardiovascular Cardiovascular: Denies chest pain, Denies dyspnea and Denies dyspnea on exertion Respiratory Respiratory: Denies cough, Denies dyspnea and Denies dyspnea on exertion Gastrointestinal Gastrointestinal: Denies abdominal pain, Denies change in bowel habits and Denies fecal incontinence Genitourinary Genitourinary: Reports as per HPI, Denies urinary incontinence and Denies urinary hesitancy Musculoskeletal Musculoskeletal: Reports as per HPI, Reports back pain, Denies muscle weakness, Denies numbness, Denies radiating pain into limb, Reports stiffness and Denies tingling Integumentary/Breasts Skin/Breast: Reports as per HPI and Denies rash Neurologic Neurologic: Reports as per HPI, Denies frequent falls, Denies headache(s), Denies focal weakness, Denies numbness, Denies radicular pain, Denies sensory deficit, Denies tingling and Denies paresthesias Endocrine Endocrine: Denies fatigue [facility] Medical History Cervical polyp (Acute) Diabetes mellitus (Acute 10/15/12) A1C goal 7; Diagnosed in HS Elev transaminase/LDH (Inactive 07/11/11) 0606-1142 GI CA: Fatty Liver, AST 113, ALT 176, Statin made worse Iron studies & Viral serologies [place] [facility] [place] liver biopsy confirmed non-ETOH cirrhosis Hot flashes (Inactive 05/10/14) Mg++ supplementation helped/Dr. Lincoln Hyperlipidemia (Acute 12/26/12) PCEq CV risk 1.7% Liver cirrhosis secondary to TERRAZAS (Acute 08/02/16) [place]: 11[place]09/[place] [facility] [place] Morbid obesity (Acute 07/11/11) [facility] 11/2012 Viral syndrome (Inactive) Surgical History H/O LEEP (Acute) S/P cholecystectomy (Acute) S/P tonsillectomy and adenoidectomy (Acute) Social History Smoking/Tobacco Use Status: Never Alcohol Intake: never Drug use: Never Substance use type: does not use Adopted: No Foster care: No Household members: family, children and other Details: lives w/ mom and dad and twins 5 at home Housing: house Number of Children: 2 current occupation: [employer] What type of physical activity do you participate in: walking Seatbelt use: always Do you feel safe in your relationship?: Yes Female Reproductive History Menstrual control method: pills History History 1 Para 2 Hx # Term Pregnancies Multiple births 2 Hx # Pregnancies Ectopic pregnancies AB induced Hx Number of Living Children AB spontaneous Exam Const General: cooperative, healthy appearing, comfortable, no acute distress, well developed and well groomed Nutritional Appearance: well nourished and overweight Orientation: alert and awake Eyes General: appearance normal, both eyes and all related structures Neck Neck: normal visual inspection, full ROM, no lymphadenopathy and no meningeal signs Resp Effort & Inspection: normal respiratory effort and able to speak in complete sentences Auscultation: clear to auscultation bilaterally, no rales, no rhonchi and no wheezes Cardio Rate: regular rate Rhythm: regular rhythm Heart Sounds: S1 normal and S2 normal GI Inspection: normal to inspection Palpation: soft and nontender Percussion: normal to percussion Back/Spine/Pelvis Back: no CVA tenderness Cervical Spine: normal cervical lordosis and cervical ROM normal Thoracic/Lumbar Spine: thoracic and lumbar spine normal to inspection (no midline pain, no step off palpated), No thoraco-lumbar ROM normal (good rotation but pain and limitation with forward flexion), straight leg raise negative bilaterally, bend over test abnormal, mass, No paraspinal tenderness, No scoliosis, thoraco-lumbar spasm, No thoracic spinal tenderness and No lumbar spinal tenderness Pelvis: no pain with anterior-posterior compression and no pain with lateral compression Back/spine/pelvis image: 1. area of discomfort, feels tight. No midline tenderness. Skin General skin exam: no rashes or lesions noted Neuro General: alert and awake Cognition: normal cognition Speech: speech normal Gait: normal gait Motor: muscle tone normal throughout, strength 5/5 throughout, no movement abnormalities noted and no fasciculations Sensory Exam: no sensory deficits noted (no saddle paresthesias) DTR's: Rt Patellar: 2+, Lt Patellar: 2+, Rt Ankle: 2+ and Lt Ankle: 2+ Extrem General: normal to inspection, full ROM, normal capillary refill, no joint enlargement, no pedal edema, no calf tenderness and normal gait Psych Appearance: grossly normal and well kempt Mental Status: mental status grossly normal Speech and Movement: speech and movement normal Course Vital Signs Vital signs: Vital Signs Temperature 36.4 C L 05/03/19 10:03 Pulse 100 H 05/03/19 10:03 Respiratory Rate 16 05/03/19 10:03 Blood Pressure 138/84 05/03/19 10:03 Pulse Oximetry 99 05/03/19 10:03 Temperature 36.4 C L 05/03/19 10:03 Temperature Source Skin 05/03/19 10:03 Pulse 100 H 05/03/19 10:03 Respiratory Rate 16 05/03/19 10:03 Respiratory Effort Non-Labored 05/03/19 10:03 Blood Pressure 138/84 05/03/19 10:03 Blood Pressure Position Sitting 05/03/19 10:03 Pulse Oximetry 99 05/03/19 10:03 Oxygen Delivery Method Room Air 05/03/19 10:03 Oxygen Flow Rate 0 05/03/19 10:03 Pain Level 10 05/03/19 10:03
[2019-05-03] MEDS: Acetaminophen 500 MG TAB 1000 MG PO (10:43)
[2019-05-03] MEDS: Lidocaine 5% Patch 1 PATCH TP (10:44)
[2019-05-03] MEDS: Ibuprofen 600 MG TAB PO (10:44)
[2019-05-03] MEDS: diazePAM 5 MG TAB PO (10:44)
== END 2019-05-03 12:00 | disposition home or self-care (01) ==
PROVIDERS: Emergency Provider Physician Assistant; PCP Nurse Practitioner
DX: M54.5 Low back pain (principal); M62.830 Muscle spasm of back; E11.9 Type 2 diabetes mellitus without complications; Z79.4 Long term (current) use of insulin
CPT/HCPCS: 99283

== ENCOUNTER 2020-03-02 14:33 | Outpatient (REF) | payer MEDICAID, SELFPAY ==
[2020-03-04 15:58] LABS: Chlamydia Result Negative (Negative); GC Result Negative (Negative)
== END 2020-03-02 14:53 ==
LOC: NCHCN 14:33
PROVIDERS: Visit Provider Nurse Practitioner Family
DX: N89.8 Other specified noninflammatory disorders of vagina (principal); Z11.3 Encounter for screening for infections with a predominantly sexual mode of transmission
CPT/HCPCS: 87491; 87591

== ENCOUNTER 2020-03-02 14:40 | Outpatient (REF) | payer MEDICAID, SELFPAY ==
[2020-03-02 22:11] LABS: ALT 65 U/L (14-59); AST 78 U/L (15-37); Albumin 3.5 g/dL (3.4-5.0); Alkaline Phosphatase 120 U/L (46-116); Anion Gap 11.5 mmol/L (3-11); BUN 9 mg/dL (7-18); Bilirubin, Total 0.7 mg/dL (0.2-1.0); CO2 24.5 mmol/L (21.0-32.0); CREATININE 0.66 mg/dL (0.55-1.02); Calcium 8.9 mg/dL (8.5-10.1); Calculated LDL 53 mg/dL (<100); Chloride 103 mmol/L (98-107); Cholesterol 130 mg/dL (<200); Glucose 286 mg/dL (74-106); HDL Cholesterol 35 mg/dL (40-60); Potassium 4.4 mmol/L (3.5-5.1); Sodium 139 mmol/L (136-145); Total Protein 6.8 g/dL (6.4-8.2); Triglyceride 214 mg/dL (<150)
[2020-03-02 22:12] LABS: Hemoglobin A1C 10.1 % (<5.7)
== END 2020-03-02 15:00 ==
LOC: NCHCN 14:40
PROVIDERS: Visit Provider Nurse Practitioner Family
DX: E11.9 Type 2 diabetes mellitus without complications (principal); E78.5 Hyperlipidemia, unspecified; R74.0 Nonspecific elevation of levels of transaminase and lactic acid dehydrogenase [LDH]; N89.8 Other specified noninflammatory disorders of vagina; R82.998 Other abnormal findings in urine
CPT/HCPCS: 80053; 80061; 83036; 87086

== ENCOUNTER 2020-03-08 11:22 | Outpatient (REF) | payer MEDICAID, SELFPAY | END 2020-03-08 11:42 | LOC: NCHCN 11:22 | PROVIDERS: Visit Provider Nurse Practitioner Family | DX: N89.8 Other specified noninflammatory disorders of vagina (principal) | CPT/HCPCS: 87480; 87510; 87660 ==

== ENCOUNTER 2020-04-01 07:26 | Outpatient (CLI) | payer MEDICAID, SELFPAY ==
[2020-04-02 20:40] LABS: COVID-19 RT-PCR Result NEGATIVE (Negative)
== END 2020-04-01 07:46 ==
PROVIDERS: Visit Provider Nurse Practitioner Family
DX: Z11.59 Encounter for screening for other viral diseases (principal)
CPT/HCPCS: U0003

== ENCOUNTER 2020-05-10 12:41 | Outpatient (REF) | payer MEDICAID, SELFPAY | END 2020-05-10 13:01 | LOC: NCHCN 12:41 | PROVIDERS: PCP Nurse Practitioner Family; Visit Provider Nurse Practitioner Family | DX: N39.0 Urinary tract infection, site not specified (principal) | CPT/HCPCS: 87077; 87086; 87186 ==

== ENCOUNTER 2020-05-25 16:56 | Outpatient (REF) | payer MEDICAID, SELFPAY ==
[2020-05-29 10:13] LABS: SARS-CoV-2 RNA Undetected (Undetected); SARS-CoV-2 Specimen Source Nasal
== END 2020-05-25 17:16 ==
LOC: NCHCN 16:56
PROVIDERS: PCP Nurse Practitioner Family; Visit Provider Physician Assistant
DX: Z11.59 Encounter for screening for other viral diseases (principal)
CPT/HCPCS: U0003

== ENCOUNTER 2020-06-13 09:25 | Outpatient (REF) | payer MEDICAID, SELFPAY ==
--- NOTE | 2020-06-13 08:30 | PAPFT_PTH ---
PATIENT: Nan Marie LOC: [facility] U#:[id number] AGE/SX: 40/F ROOM: RE06/13/[address]: Tiff Juarez NP : 1980 BED: DIS: 06/13/2020 SPEC #: [id number] RECD: 06/13/20 12:45 STATUS: MONSTER REQ #: [id number] VINH: 06/13/20 08:[address]: Tiff Juarez NP DEPT: [facility] Cytology RECD BY: Gely Damian ENTERED: 06/13/20 12:45 SP TYPE: PAPFT OTHR DR: Sheeba Young Tissues: 1 - CX/ENDOCX FOR PAP SMEARS Procedures: PAP THIN PREP/UVM Screening HPV DNA PROBE Comments: [id number]
== END 2020-06-13 09:45 ==
LOC: LBN 09:25
PROVIDERS: PCP Nurse Practitioner Family; Visit Provider Nurse Practitioner Women's Health
DX: Z12.4 Encounter for screening for malignant neoplasm of cervix (principal); Z11.51 Encounter for screening for human papillomavirus (HPV)
CPT/HCPCS: 88142; 87624

== ENCOUNTER 2020-07-24 18:37 | Emergency (ER) | payer MEDICAID, SELFPAY ==
[2020-07-24 18:40] VITALS: BP 149/94; PULSE 88; RESP 16; TEMP 36; O2SAT 98
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
[2020-07-24] MEDS: oxyCODONE 5 MG TAB PO (18:54)
[2020-07-24] MEDS: oxyCODONE 5 mg/Acetaminophen 325 mg TAB 2 TAB PO (19:18)
== END 2020-07-24 19:20 | disposition home or self-care (01) ==
PROVIDERS: Emergency Provider Registered Nurse Emergency; PCP Nurse Practitioner Family
DX: T21.22XA Burn of second degree of abdominal wall, initial encounter (principal); X12.XXXA Contact with other hot fluids, initial encounter; T31.0 Burns involving less than 10% of body surface; E11.9 Type 2 diabetes mellitus without complications; Z79.4 Long term (current) use of insulin
CPT/HCPCS: 16020

== ENCOUNTER 2020-10-06 15:38 | Outpatient (REF) | payer MEDICAID, SELFPAY ==
[2020-10-06 13:56] LABS: Abs Immature Grans 0.04 10^3/uL (0.0-0.06); Absolute Basophil Count 0.05 10^3/uL (0.0-0.2); Absolute Eosinophil Count 0.13 10^3/uL (0.0-0.7); Absolute Lymphocyte Count 1.38 10^3/uL (1.2-3.4); Absolute Monocyte Count 0.29 10^3/uL (0.1-0.8); Absolute Neutrophil Count 5.16 10^3/uL (1.2-6.7); Basophils % 0.7; Eosinophils % 1.8; HCT 41.9 % (36.0-46.0); HGB 13.8 g/dL (11.2-15.7); Immature Grans % 0.6; Lymphocytes % 19.6; MCH 30.3 pg (27.0-33.0); MCHC 32.9 % (32.0-36.0); MCV 91.9 fL (80-95); MPV 10.4 fL (8.0-11.0); Monocytes % 4.1; Neutrophils % 73.2; Nucleated RBC 0 %; Platelet Count 325 10^3/uL (130-400); RBC 4.56 10^6/uL (3.93-5.22); RDW 12.4 % (11.7-14.6); RDW-SD 42.3 fL; WBC 7.05 10^3/uL (4.4-10.8)
[2020-10-06 14:00] LABS: Anion Gap 8.2 mmol/L (3-11); BUN 10 mg/dL (7-18); CO2 26.8 mmol/L (21.0-32.0); CREATININE 0.8 mg/dL (0.55-1.02); Calcium 9.4 mg/dL (8.5-10.1); Chloride 99 mmol/L (98-107); Glucose 420 mg/dL (74-106); Potassium 4.4 mmol/L (3.5-5.1); Sodium 134 mmol/L (136-145)
[2020-10-06 14:05] LABS: Bilirubin Negative (Negative); Blood Negative (Negative); Clarity Clear (Clear); Glucose >=1000 mg/dL (Negative); Ketones 15 mg/dL (Negative); Leukocyte Esterase Negative (Negative); Nitrite Negative (Negative); pH 6.5 (5-8)
== END 2020-10-06 15:39 | disposition home or self-care (01) ==
LOC: NCHCN 15:38
PROVIDERS: PCP Nurse Practitioner Family; Visit Provider Physician Assistant Medical
DX: R34 Anuria and oliguria (principal); M54.9 Dorsalgia, unspecified; Z87.442 Personal history of urinary calculi
CPT/HCPCS: 80048; 81003; 85025

== ENCOUNTER 2020-10-06 19:36 | Outpatient (CLI) | payer MEDICAID, SELFPAY ==
--- NOTE | 2020-10-06 10:30 | DI.CT_ITS ---
EXAM: CT RENAL COLIC WO TECHNIQUE: Imaging Protocol: Axial computed tomography images with coronal and sagittal reformatted images were created and reviewed CONTRAST MATERIAL: Noncontrast COMPARISON: No exams were available for comparison FINDINGS: The heart size is normal. The lung bases are clear. The liver shows fatty infiltration. The patien t is status post cholecystectomy. The spleen, pancreas and adrenals are unremarkable. No hydronephr osis or urinary tract calculi are seen. The bladder is unremarkable. There is diverticulosis of the descending and sigmoid colon. There is no evidence of diverticulitis. The appendix appears normal. There is no gastric or small bowel distention. There is a dominant f ollicle on the right ovary. The uterus and left ovary are unremarkable. There is a tiny fatty conta ining umbilical hernia. The bones are unremarkable. The aorta is normal in diameter. IMPRESSION: No evidence of urinary tract calculi or hydronephrosis. RADIATION DOSE DELIVERED: 1,073.12mGy.cm Total DLP 1,073.12mGy.cm Total DLP DATA REPOSITORY: All CT scans at this facility are submitted to the National Radiology Data Registry (NRDR) Dose Index Registry (DIR) with the [employer] ([employer]). RADIATION OPTIMIZATION: All CT scans at this facility use at least one of these dose optimization te chniques: automated exposure control; mA and/or kV adjustment per patient size (includes targeted exa ms where dose is matched to clinical indication); or iterative reconstruction.
== END 2020-10-06 19:56 ==
PROVIDERS: PCP Nurse Practitioner Family; Visit Provider Physician Assistant Medical
DX: N23 Unspecified renal colic (principal)
CPT/HCPCS: 74176

== ENCOUNTER 2020-12-03 16:15 | Emergency (ER) | payer MEDICAID, SELFPAY ==
[2020-12-03] VITALS (38 sets, daily range): BP systolic 115–144; BP diastolic 57–89; PULSE 84–103; RESP 9–29; TEMP 36.6; O2SAT 94–98
--- NOTE | 2020-12-03 16:15 | RT.EKG_ITS ---
APPROVED REPORT Exam: Resting ECG Reason for Exam: chest pain Patient Location: E HR:105 bpm ECG Measurements Heart Rate 105 AXIS NH 122 P 16 QRSd 84 QRS 58 QT 346 T 20 QTc 457 Conclusion Sinus tachycardia...rate> 99 I have reviewed and interpreted ECG and agree with software generated interpretation.
--- NOTE | 2020-12-03 16:21 | ED.GENADUL_ITS ---
Discharge Plan Disposition Patient Disposition: HOME Condition: Improving Discharge Details Clinical Impression: Chest wall pain, Nausea, Hyperglycemia Primary Care Provider: Sheeba Young ED Provider: Franchesca Broderick Home Meds and New Rx's Prescriptions: Continued citalopram 40 mg tablet 40 mg PO DAILY Qty: 90 RF: 3 trazodone 50 mg tablet 50 mg PO HS PRN (Reason: insomnia) Qty: 90 RF: 3 albuterol sulfate [ProAir HFA] 90 mcg/actuation HFA aerosol inhaler 2 puff Inhalation Q4H PRN Qty: 1 RF: 1 (DME) pen needle, diabetic [Pen Needle] 31 gauge x 5/16 needle 1 ea Miscellaneous 6 times daily Qty: 550 RF: 3 (DME) FreeStyle Lite Strips strip 1 ea Miscellaneous 5-6 times daily Qty: 450 RF: 3 fluticasone propionate [Allergy Relief (fluticasone)] 50 mcg/actuation spray,suspension 2 spray CHAN DAILY Qty: 15.8 RF: 0 ondansetron HCl [Zofran] 4 mg tablet 4 mg PO QID PRN (Reason: nausea and vomiting) Qty: 20 RF: 0 Humalog KwikPen Insulin 200 unit/mL (3 mL) insulin pen 20 unit subcut TID MDD 162 UNITS Qty: 15 RF: 12 Victoza 2-Brennan 0.6 mg/0.1 mL (18 mg/3 mL) pen injector 1.8 mg subcut DAILY Qty: 6 RF: 12 norethindrone (contraceptive) [Deblitane] 0.35 mg tablet 0.35 mg PO DAILY Qty: 84 RF: 5 magnesium oxide 400 MG capsule 400 mg PO DAILY Qty: 90 RF: 0 Ascorbic Acid [Vitamin C] 500 MG capsule 500 mg PO DAILY RF: 0 ferrous sulfate 325 MG tablet 325 mg PO DAILY RF: 0 pioglitazone [Actos] 15 MG tablet 15 mg PO DAILY RF: 0 Lantus Solostar U-100 Insulin 100 unit/mL (3 mL) insulin pen See Rx Instructions Sub-Q BID MDD 95 units Qty: 15 RF: 3 atorvastatin 40 mg tablet 40 mg PO DAILY Qty: 90 RF: 3 metformin 1,000 mg tablet 1,000 mg PO BID Qty: 180 RF: 3 omeprazole 20 mg capsule,delayed release(DR/EC) 20 mg PO DAILY Qty: 90 RF: 3 lorazepam 2 mg tablet 2 mg PO QHS RF: 0 cyanocobalamin (vitamin B-12) 500 mcg tablet 500 mcg PO DAILY RF: 0 ibuprofen 600 MG tablet 600 mg PO Q6H PRN PRN (Reason: Pain) Qty: 30 RF: 0 cyclobenzaprine 10 mg tablet 10 mg PO TID PRN (Reason: muscle spasm) Qty: 14 RF: 0 Discharge Instructions Instructions: Acute Nausea and Vomiting (ED), Diabetic Hyperglycemia (ED), Chest Wall Pain (ED) Additional Instructions: Drink plenty of fluids and get plenty of rest. Alternate tylenol and motrin as needed and directed for pain. Check your sugar regularly. Take all of your medications including your insulin as needed and directed. Call your primary care doctor's office on Saturday morning to schedule a follow-up appointment for reevaluation and for outpatient stress test if symptoms do not improve or worsen. Return immediately to the emergency department if you develop any worsening or new concerning symptoms. Discharge Data Discharge Date/Time-TO BE ENTERED AT DEPARTURE: 12/03/20 20:50 Discharge Physician: Franchesca Broderick Medical Decision Making 40-year-old female with a history of morbid obesity, hypertension, hyperlipidemia, diabetes presents for right shoulder numbness, left chest pain since 830 this morning. EKG on arrival notes a rate of 105, sinus, no STEMI, nondiagnostic. She is afebrile and appears nontoxic. Fingerstick glucose 516. Patient states she has not taken her insulin for 2 months because I forget . Diagnosis differential diagnosis includes PE, ACS, arrhythmia, electrolyte abnormality, DKA, uti, pneumonia, etc. Labs reviewed. Normal white blood cell count. Glucose 466. VBG notes a normal pH of 7.4 and a normal bicarb of 23. Magnesium 1.6, will replete. Elevation of LFTs compared to baseline which are usually elevated. T bili minimally elevated at 1.1. She has a h/o cholecystectomy. Troponin negative. Urinalysis notes trace ketones but no infection. CT chest negative. CT abdomen pelvis notes incidental adnexal cyst but no other acute findings. Repeat troponin negative. Repeat EKG unchanged. Patient reassessed and she states she feels much better. She denies any chest pain or shoulder heaviness at this time. She states she feels good to go home. Advised to call her primary care doctor Saturday to schedule a follow-up appointment for reevaluation and for consideration for outpatient stress test if symptoms not improve or worsen. Usual and customary return precautions given prior to discharge. Medical Records Medical records reviewed: Yes I reviewed the patient's medical records. Lab Data Lab results reviewed: Yes I reviewed the patient's lab results. Labs: Laboratory Tests Range/Units 12/03/20 12/03/20 12/03/20 16:32 16:32 16:32 WBC (4.4-10.8) 10^3/uL 8.22 RBC (3.93-5.22) 10^6/uL 5.02 Hgb (11.2-15.7) g/dL 14.9 Hct (36.0-46.0) % 44.5 MCV (80-95) fL 88.6 MCH (27.0-33.0) pg 29.7 MCHC (32.0-36.0) % 33.5 RDW (11.7-14.6) % 12.4 Plt Count (130-400) 10^3/uL 283 MPV (8.0-11.0) fL 9.7 Immature Gran % 0.5 Neutrophils % 69.7 Lymphocytes % 23.7 Monocytes % 4.0 Eosinophils % 1.5 Basophils % 0.6 Nucleated RBC % % 0 Absolute Neutrophils (1.2-6.7) 10^3/uL 5.73 Absolute Lymphocytes (1.2-3.4) 10^3/uL 1.95 Absolute Monocytes (0.1-0.8) 10^3/uL 0.33 Absolute Eosinophils (0.0-0.7) 10^3/uL 0.12 Absolute Basophils (0.0-0.2) 10^3/uL 0.05 PT (9.3-11.0) sec 9.9 INR (0.9-1.1) 1.0 APTT (21.0-27.5) sec 22.2 VBG pH (7.31-7.41) VBG pCO2 (41-51) mmHg VBG pO2 mmHg VBG HCO3 (23-28) mmol/L VBG Total CO2 (24-29) mmol/L VBG O2 Saturation % VBG Base Excess (-2-3) mmol/L Sodium (136-145) mmol/L 133 L Potassium (3.5-5.1) mmol/L 3.5 Chloride (98-107) mmol/L 98 Carbon Dioxide (21.0-32.0) mmol/L 24.3 Anion Gap (3-11) mmol/L 10.7 BUN (7-18) mg/dL 7 Creatinine (0.55-1.02) mg/dL 0.8 Estimated GFR/1.73 m2 (mL/min/1.73m2) >= 60.00 Glucose (74-106) mg/dL 466 H Calcium (8.5-10.1) mg/dL 9.1 Magnesium (1.8-2.4) mg/dL 1.6 L Total Bilirubin (0.2-1.0) mg/dL 1.1 H AST (15-37) U/L 40 H ALT (14-59) U/L 69 H Alkaline Phosphatase (46-116) U/L 212 H Troponin I (<0.06) ng/mL < 0.05 Total Protein (6.4-8.2) g/dL 7.7 Albumin (3.4-5.0) g/dL 3.8 Urine Color (Yellow) Urine Clarity (Clear) Urine pH (5-8) Ur Specific [place] (1.005-1.025) Urine Protein (Negative) mg/dL Urine Ketones (Negative) mg/dL Urine Blood (Negative) Urine Nitrite (Negative) Urine Bilirubin (Negative) Urine Urobilinogen (Up TO 0.2) EU/dL Ur Leukocyte Esterase (Negative) Urine RBC (0-2) HPF Urine WBC (0-5) HPF Ur Epithelial Cells (Negative) HPF Urine Crystals (Negative) HPF Urine Bacteria (Negative) HPF Urine Casts (Negative) LPF Urine Mucus (Negative) Urine Other (Negative) Ur Culture Indicated? Urine Glucose (Negative) mg/dL Range/Units 12/03/20 12/03/20 12/03/20 18:17 18:27 19:35 WBC (4.4-10.8) 10^3/uL RBC (3.93-5.22) 10^6/uL Hgb (11.2-15.7) g/dL Hct (36.0-46.0) % MCV (80-95) fL MCH (27.0-33.0) pg MCHC (32.0-36.0) % RDW (11.7-14.6) % Plt Count (130-400) 10^3/uL MPV (8.0-11.0) fL Immature Gran % Neutrophils % Lymphocytes % Monocytes % Eosinophils % Basophils % Nucleated RBC % % Absolute Neutrophils (1.2-6.7) 10^3/uL Absolute Lymphocytes (1.2-3.4) 10^3/uL Absolute Monocytes (0.1-0.8) 10^3/uL Absolute Eosinophils (0.0-0.7) 10^3/uL Absolute Basophils (0.0-0.2) 10^3/uL PT (9.3-11.0) sec INR (0.9-1.1) APTT (21.0-27.5) sec VBG pH (7.31-7.41) 7.40 VBG pCO2 (41-51) mmHg 37 L VBG pO2 mmHg 61 VBG HCO3 (23-28) mmol/L 23 VBG Total CO2 (24-29) mmol/L 21 L VBG O2 Saturation % 91 VBG Base Excess (-2-3) mmol/L -2 Sodium (136-145) mmol/L Potassium (3.5-5.1) mmol/L Chloride (98-107) mmol/L Carbon Dioxide (21.0-32.0) mmol/L Anion Gap (3-11) mmol/L BUN (7-18) mg/dL Creatinine (0.55-1.02) mg/dL Estimated GFR/1.73 m2 (mL/min/1.73m2) Glucose (74-106) mg/dL Calcium (8.5-10.1) mg/dL Magnesium (1.8-2.4) mg/dL Total Bilirubin (0.2-1.0) mg/dL AST (15-37) U/L ALT (14-59) U/L Alkaline Phosphatase (46-116) U/L Troponin I (<0.06) ng/mL < 0.05 Total Protein (6.4-8.2) g/dL Albumin (3.4-5.0) g/dL Urine Color (Yellow) Yellow Urine Clarity (Clear) Clear Urine pH (5-8) 6.0 Ur Specific [place] (1.005-1.025) 1.015 Urine Protein (Negative) mg/dL Negative Urine Ketones (Negative) mg/dL Trace H Urine Blood (Negative) Moderate H Urine Nitrite (Negative) Negative Urine Bilirubin (Negative) Negative Urine Urobilinogen (Up TO 0.2) EU/dL 1.0 H Ur Leukocyte Esterase (Negative) Negative Urine RBC (0-2) HPF Negative Urine WBC (0-5) HPF 0-2 Ur Epithelial Cells (Negative) HPF Few Urine Crystals (Negative) HPF Negative Urine Bacteria (Negative) HPF Negative Urine Casts (Negative) LPF Negative Urine Mucus (Negative) Negative Urine Other (Negative) Rare yeast Ur Culture Indicated? No Urine Glucose (Negative) mg/dL >=1000 H ECG Data Attestation: I personally reviewed and interpreted this ECG (s) as follows: Interpretation: #1 -- Rate of 105, sinus, no acute ST elevation or depression. [place] 122. QRS 58. QTc 457. #2 -- Rate of 85, sinus, no acute ST elevation or depression. [place] 132. QRS 54. QTc 448. HPI General Mode of arrival: ambulatory . Date/Time Provider Initiated Documentation: 12/03/20 16:16 . Limitations to Documentation: no limitations . Information obtained by: patient . HPI Narrative: Patient is a 40-year-old female with a history of morbid obesity, hypertension, hyperlipidemia, diabetes presents for right shoulder numbness and left-sided chest pain since this morning. She also admits to occasional nausea. She states she is fully vaccinated but traveled to [place] last week. She denies any known exposure to Covid. She admits to some shortness of breath with the left-sided chest pain but denies any at present. She denies any known fever, vomiting, dizziness, diarrhea, cough. She states she has not taken her insulin for the past 2 months because I forget and also because it makes me feel funny. Related Data Home Medications Medication Instructions Recorded Confirmed magnesium oxide 400 mg PO DAILY #90 tab 05/24/14 12/03/20 ibuprofen 600 mg PO Q6H PRN PRN #30 tab 06/20/16 12/03/20 Ascorbic Acid [Vitamin C] 500 mg PO DAILY 11/18/17 12/03/20 ferrous sulfate 325 mg PO DAILY tab 11/18/17 12/03/20 pioglitazone [Actos] 15 mg PO DAILY tab-cap 02/06/18 12/03/20 fluticasone propionate 50 2 spray CHAN DAILY #15.8 gm 04/11/18 12/03/20 mcg/actuation nasal spray,suspension albuterol sulfate 90 mcg/actuation 2 puff INHALATION Q4H PRN #1 06/09/18 12/03/20 aerosol inhaler inhaler blood sugar diagnostic #450 strip 06/09/18 07/24/20 pen needle, diabetic 31 gauge x #550 each 06/09/18 07/24/2011/13 trazodone 50 mg tablet 50 mg PO HS PRN #90 tab 06/09/18 12/03/20 insulin glargine 100 unit/mL (3 See Rx Instructions SUB-Q BID #15 09/05/18 12/03/20 mL) subcutaneous pen ml MDD 95 units atorvastatin 40 mg tablet 40 mg PO DAILY #90 tab-cap 09/29/18 12/03/20 citalopram 40 mg tablet 40 mg PO DAILY #90 tab 10/22/18 12/03/20 ondansetron HCl 4 mg tablet 4 mg PO QID PRN #20 tab 11/18/18 12/03/20 insulin lispro 200 unit/mL (3 mL) 20 unit SUBCUT TID #15 ml MDD 162 12/02/18 12/03/20 subcutaneous pen UNITS liraglutide 0.6 mg/0.1 mL (18 mg/3 1.8 mg SUBCUT DAILY #6 ml 12/02/18 12/03/20 mL) subcutaneous pen injector metformin 1,000 mg tablet 1,000 mg PO BID #180 tab-cap 04/27/19 12/03/20 cyclobenzaprine 10 mg PO TID PRN #14 tab 05/03/19 12/03/20 omeprazole 20 mg capsule,delayed 20 mg PO DAILY #90 tab 05/14/19 12/03/20 release cyanocobalamin (vitamin B-12) 500 500 mcg PO DAILY 08/11/19 12/03/20 mcg tablet lorazepam 2 mg tablet 2 mg PO QHS 08/11/19 12/03/20 norethindrone (contraceptive) 0.35 0.35 mg PO DAILY #84 tab 12/14/20 06/05/21 mg tablet Previous Rx's Medication Instructions Recorded ibuprofen 600 mg PO Q6H PRN PRN #30 tab 06/20/16 fluticasone propionate 50 2 spray CHAN DAILY #15.8 gm 04/11/18 mcg/actuation nasal spray,suspension albuterol sulfate 90 mcg/actuation 2 puff INHALATION Q4H PRN #1 06/09/18 aerosol inhaler inhaler blood sugar diagnostic #450 strip 06/09/18 pen needle, diabetic 31 gauge x #550 each 06/09/1811/13 trazodone 50 mg tablet 50 mg PO HS PRN #90 tab 06/09/18 insulin glargine 100 unit/mL (3 See Rx Instructions SUB-Q BID #15 09/05/18 mL) subcutaneous pen ml MDD 95 units atorvastatin 40 mg tablet 40 mg PO DAILY #90 tab-cap 09/29/18 citalopram 40 mg tablet 40 mg PO DAILY #90 tab 10/22/18 ondansetron HCl 4 mg tablet 4 mg PO QID PRN #20 tab 11/18/18 insulin lispro 200 unit/mL (3 mL) 20 unit SUBCUT TID #15 ml MDD 162 12/02/18 subcutaneous pen UNITS liraglutide 0.6 mg/0.1 mL (18 mg/3 1.8 mg SUBCUT DAILY #6 ml 12/02/18 mL) subcutaneous pen injector metformin 1,000 mg tablet 1,000 mg PO BID #180 tab-cap 04/27/19 cyclobenzaprine 10 mg PO TID PRN #14 tab 05/03/19 omeprazole 20 mg capsule,delayed 20 mg PO DAILY #90 tab 05/14/19 release norethindrone (contraceptive) 0.35 0.35 mg PO DAILY #84 tab 06/13/20 mg tablet Allergies Allergy/AdvReac Type Severity Reaction Status Date / Time glipizide AdvReac Intermediate nausea, Verified 12/03/20 16:32 vomiting, diarrhea prazosin AdvReac Unknown heart Verified 12/03/20 16:32 palpitations General FELIBERTO: 3 Review of Systems All systems reviewed & are unremarkable except as noted in HPI and below Constitutional Constitutional: Reports as per HPI, Denies chills and Denies fever(s) Eyes Eyes: Denies blurry vision ENT Ears, Nose, Mouth, and Throat: Denies dizziness, Denies sore throat and Denies throat swelling Cardiovascular Cardiovascular: Reports chest pain and Denies dyspnea Respiratory Respiratory: Denies cough and Denies dyspnea Gastrointestinal Gastrointestinal: Denies abdominal pain, Denies diarrhea, Reports nausea and Denies vomiting Genitourinary Genitourinary: Denies hematuria and Denies dysuria Musculoskeletal Musculoskeletal: Denies back pain and Denies numbness Integumentary/Breasts Skin/Breast: Denies lesions and Denies rash Neurologic Neurologic: Denies dizziness, Denies localized weakness and Denies numbness Allergic/Immunologic Allergic/Immunologic: Denies throat swelling [facility] Medical History Adjustment disorder with mixed anxiety and depressed mood (12/06/16) Cervical polyp not noted on todays exam 06/13/20 Diabetes mellitus (10/15/12) A1C goal 7; Diagnosed in HS Elev transaminase/LDH (07/11/11) [id number] GI SD: Fatty Liver, AST 113, ALT 176, Statin made worse Iron studies & Viral serologies NEG [facility] [place] [facility] 10/2015 - liver biopsy confirmed non-ETOH cirrhosis Hot flashes (05/10/14) Mg++ supplementation helped/Dr. 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) Bx: 11/09/2015 [facility] [place] 08/11/19 f/u [facility] [place] [facility] Morbid obesity (07/11/11) [facility] 11/2012 Viral syndrome Surgical History H/O LEEP S/P cholecystectomy S/P tonsillectomy and adenoidectomy Family History Maternal Grandfather Myocardial infarction Lung cancer Paternal Grandmother Colon cancer Father COPD (chronic obstructive pulmonary disease) Maternal Grandmother Stroke Social History Smoking/Tobacco Use Status: Never Smoking risk assessment performed?: Yes Alcohol Intake: never Drug use: Never Substance use type: does not use Adopted: No Foster care: No Household members: family, children and other Details: lives w/ mom and dad and twins 5 at home Housing: house Number of Children: 2 current occupation: [employer] What type of physical activity do you participate in: walking Seatbelt use: always Do you feel safe at home: Yes Do you feel safe in your relationship?: Yes Female Reproductive History Menstrual control method: pills History History 1 Para 2 Hx # Term Pregnancies Multiple births 2 Hx # Pregnancies Ectopic pregnancies AB induced Hx Number of Living Children AB spontaneous Exam Const General: cooperative and no acute distress HENMT Head: normal to inspection Face and sinus: normal facial exam Eyes General: appearance normal, both eyes and all related structures Pupils: PERRL EOM: EOM intact bilaterally Neck Neck: normal visual inspection and No submandibular swelling Lymphatic: no lymphadenopathy noted Chest Chest: normal inspection of the chest and tenderness (L anterior and lateral chest) Resp Effort & Inspection: normal respiratory effort and able to speak in complete sentences Auscultation: clear to auscultation bilaterally Cardio Rate: regular rate Rhythm: regular rhythm GI Inspection: normal to inspection and obesity Palpation: soft, not firm, not rigid and tender in the LUQ Auscultation: hypoactive bowel sounds Skin General skin exam: no rashes or lesions noted Neuro General: patient alert, patient awake and patient oriented x3 Cognition: normal cognition Speech: speech normal Motor: muscle tone normal throughout Sensory Exam: no sensory deficits noted Extrem General: normal to inspection, full ROM, capillary refill normal, no calf tenderness bilaterally and no edema Right upper extremity: shoulder/upper arm Details: normal to inspection and normal ROM; no tenderness, no swelling, no ecchymosis, no crepitus, no deformity and no unusual warmth, elbow/forearm Details: normal to inspection and normal ROM; no tenderness and no swelling and wrist Details: normal to inspection and normal ROM; no tenderness and no swelling Psych Appearance: grossly normal Mental Status: mental status grossly normal Speech and Movement: speech and movement normal Affect: normal affect
[2020-12-03 16:46] LABS: Abs Immature Grans 0.04 10^3/uL (0.0-0.06); Absolute Basophil Count 0.05 10^3/uL (0.0-0.2); Absolute Eosinophil Count 0.12 10^3/uL (0.0-0.7); Absolute Lymphocyte Count 1.95 10^3/uL (1.2-3.4); Absolute Monocyte Count 0.33 10^3/uL (0.1-0.8); Absolute Neutrophil Count 5.73 10^3/uL (1.2-6.7); Basophils % 0.6; Eosinophils % 1.5; HCT 44.5 % (36.0-46.0); HGB 14.9 g/dL (11.2-15.7); Immature Grans % 0.5; Lymphocytes % 23.7; MCH 29.7 pg (27.0-33.0); MCHC 33.5 % (32.0-36.0); MCV 88.6 fL (80-95); MPV 9.7 fL (8.0-11.0); Neutrophils % 69.7; Nucleated RBC 0 %; Platelet Count 283 10^3/uL (130-400); RBC 5.02 10^6/uL (3.93-5.22); RDW 12.4 % (11.7-14.6); RDW-SD 40.4 fL; WBC 8.22 10^3/uL (4.4-10.8)
[2020-12-03] MEDS: Normal Saline 1,000 ML 1000 ML IV (16:52)
--- NOTE | 2020-12-03 17:00 | DI.CT_ITS ---
Exam(s) CT CHEST PE ABD PELVIS W EXAM: CT CHEST PE ABD PELVIS W TECHNIQUE: CT angiography of the chest, abdomen and pelvis was performed with bolus infusion of 100 cc of Omnipaque 350. Axial CT angiography was performed with multi-slice acquisition and multi-planar and/or 3D reconstruc tions. COMPARISON: CT CT RENAL COLIC WO from 10/06/2020 FINDINGS: The lungs are clear. No pleural effusion. No evidence of pulmonary embolic disease. No thoracic aort ic dissection or aneurysm. Major branches of the thoracic aorta appear normal. No pleural effusion. No mediastinal or hilar adenopathy. Tracheobronchial tree appears intact. No focal hepatic or renal abnormality seen except for question mild hepatic steatosis.. There is a p rior cholecystectomy. There is no evidence of biliary dilatation. Pancreas is unremarkable. Spleen is unremarkable. No abdominal aortic aneurysm or dissection. Major branches of the abdominal aorta appear normal. No a bdominal or pelvic adenopathy. Normal appendix. Small fat containing umbilical hernia noted.. No fo grace bowel pathology. IMPRESSION: No evidence of acute vascular abnormality of the chest, abdomen or pelvis. No other acute abnormaliti es are seen. RADIATION DOSE DELIVERED: 1,694.93mGy.cm Total DLP 1,694.93mGy.cm Total DLP DATA REPOSITORY: All CT scans at this facility are submitted to the National Radiology Data Registry (NRDR) Dose Index Registry (DIR) with the [employer] (ACR). RADIATION OPTIMIZATION: All CT scans at this facility use at least one of these dose optimization te chniques: automated exposure control; mA and/or kV adjustment per patient size (includes targeted exa ms where dose is matched to clinical indication); or iterative reconstruction.
[2020-12-03 17:08] LABS: PTT Activated 22.2 sec (21.0-27.5); Prothrombin Time 9.9 sec (9.3-11.0)
[2020-12-03 17:16] LABS: ALT 69 U/L (14-59); AST 40 U/L (15-37); Albumin 3.8 g/dL (3.4-5.0); Alkaline Phosphatase 212 U/L (46-116); Anion Gap 10.7 mmol/L (3-11); BUN 7 mg/dL (7-18); Bilirubin, Total 1.1 mg/dL (0.2-1.0); CO2 24.3 mmol/L (21.0-32.0); CREATININE 0.8 mg/dL (0.55-1.02); Calcium 9.1 mg/dL (8.5-10.1); Chloride 98 mmol/L (98-107); Glucose 466 mg/dL (74-106); Magnesium 1.6 mg/dL (1.8-2.4); Potassium 3.5 mmol/L (3.5-5.1); Sodium 133 mmol/L (136-145); Total Protein 7.7 g/dL (6.4-8.2)
[2020-12-03 17:21] LABS: Troponin I < 0.05 ng/mL (<0.06)
[2020-12-03] MEDS: Insulin REGULAR-Human 100 UNITS/ML UNIT 7 UNITS IV (18:03)
[2020-12-03] MEDS: MAGNESIUM SULFATE 1 GM/100 ML BAG IVPB (18:04)
[2020-12-03] MEDS: Potassium Chloride 20 MEQ TABCR 40 MEQ PO (18:04)
[2020-12-03 18:39] LABS: BE (Venous) -2 mmol/L (-2-3); HCO3 (Venous) 23 mmol/L (23-28); O2 Sat (Venous) 91 %; TCO2 (Venous) 21 mmol/L (24-29); pCO2 (Venous) 37 mmHg (41-51); pO2 (Venous) 61 mmHg
[2020-12-03] MEDS: Normal Saline - Diluent 50 ML VIAL IV (18:50)
[2020-12-03] MEDS: Omnipaque 350 MG/ML 100 ML BTL IJ (18:50)
[2020-12-03 19:07] LABS: Bilirubin Negative (Negative); Blood Moderate (Negative); Clarity Clear (Clear); Glucose >=1000 mg/dL (Negative); Ketones Trace mg/dL (Negative); Leukocyte Esterase Negative (Negative); Nitrite Negative (Negative); Specific Gravity 1.015 (1.005-1.025)
--- NOTE | 2020-12-03 19:15 | RT.EKG_ITS ---
APPROVED REPORT Exam: Resting ECG Reason for Exam: chest pain Patient Location: E HR:85 bpm ECG Measurements Heart Rate 85 AXIS HI 132 P 12 QRSd 85 QRS 54 QT 376 T 36 QTc 448 Conclusion Sinus rhythm...normal P axis, V-rate 60- 99. No STEMI. I have reviewed and interpreted ECG and agree with software generated interpretation.
[2020-12-03 19:23] LABS: WBC 0-2 HPF (0-5)
[2020-12-03 19:24] LABS: Bacteria Negative HPF (Negative); C & S Indicated? No; Casts Negative LPF (Negative); Crystals Negative HPF (Negative); Epithelial Cells Few HPF (Negative); Mucus Negative (Negative); Other Cells Rare Yeast (Negative); RBC Negative HPF (0-2)
[2020-12-03 20:14] LABS: Troponin I < 0.05 ng/mL (<0.06)
--- NOTE | 2020-12-03 20:22 | DI.VRAD_ITS ---
PROCEDURE INFORMATION: Exam: CTA Chest With Contrast Exam date and time: 12/03/2020 5:06 PM Age: 40 years old Clinical indication: Chest pressure; Abdominal pain; Generalized TECHNIQUE: Imaging protocol: Computed tomographic angiography of the chest with contrast. 3D rendering (Not supervised by radiologist): MIP and/or 3D reconstructed images were created by the technologist. Contrast material: OMNIPAQUE 350; Contrast volume: 100 ml; Contrast route: INTRAVENOUS (IV); COMPARISON: No relevant prior studies available. FINDINGS: Pulmonary arteries: There is no evidence of pulmonary embolism. The pulmonary arteries are not dilated. Aorta: There is no evidence for aortic dissection or aneurysm. Lungs: There are scattered regions of mild subsegmental atelectasis. Lungs otherwise clear. The central airways are patent. There is no bronchiectasis or bronchiolectasis. Pleural spaces: No pleural effusions are identified. There is no evidence of pneumothorax. Heart: Heart is normal in size. There is no pericardial effusion. Lymph nodes: Unremarkable. No enlarged lymph nodes. Bones/joints: Unremarkable. No acute fracture. Soft tissues: Unremarkable. IMPRESSION: 1. No aortic aneurysm or dissection identified. 2. No active cardiopulmonary disease. PROCEDURE INFORMATION: Exam: CT Angiography Abdomen With Contrast Exam date and time: 12/03/2020 5:06 PM Age: 40 years old Clinical indication: Chest pressure; Abdominal pain; Generalized TECHNIQUE: Imaging protocol: Computed tomographic angiography images of the abdomen with intravenous contrast material. 3D rendering (Not supervised by radiologist): MIP and/or 3D reconstructed images were created by the technologist. Contrast material: OMNIPAQUE 350; Contrast volume: 100 ml; Contrast route: INTRAVENOUS (IV); COMPARISON: No relevant prior studies available. FINDINGS: Aorta: There is no abdominal aortic aneurysm or dissection identified. There is no atherosclerotic disease. Celiac trunk and mesenteric arteries: No occlusion or significant stenosis. Renal arteries: No occlusion or significant stenosis. Liver: Normal. No mass. Gallbladder and bile ducts: There has been a cholecystectomy. Pancreas: The pancreas is mildly atrophic, but otherwise appears unremarkable without focal lesion or evidence of acute inflammation. Spleen: Normal. No splenomegaly. Adrenals: Normal. No mass. Kidneys and ureters: No renal or ureteral stones are identified. There is no hydronephrosis or hydroureter. Stomach and bowel: There are numerous colonic diverticula without evidence for acute diverticulitis. There is no evidence of small or large bowel inflammation. There is no evidence for bowel obstruction. Appendix: The appendix is well visualized and appears normal. Lymph nodes: Unremarkable. No enlarged lymph nodes. Intraperitoneal space: Unremarkable. No free air. No significant fluid collection. Reproductive: There is a 2.9 x 3.2 cm left adnexal cyst, likely a functional cyst. Bladder: No bladder stones are identified. Bones/joints: Unremarkable. No acute fracture. No dislocation. Soft tissues: There is a 2.1 x 1.2 cm fat containing umbilical hernia. IMPRESSION: 1. No abdominal aortic aneurysm or dissection identified. 2. No acute process within the abdomen or pelvis identified. 3. Colonic diverticula without evidence for acute diverticulitis. 4. 2.9 x 3.2 cm left adnexal cyst, likely a functional cyst. No further imaging is recommended. (Reference: Sourav) REFERENCES: Sourav et al. Management of Incidental Adnexal Findings on CT and MRI: A White Paper of the ACR Incidental Findings Committee, J Am Dl Radiol. 2020 Aug;17(2):248-254. Dictated and Authenticated by: Sohan Reilly MD. Ordering:TORREY Sorensen MD
== END 2020-12-03 20:50 | disposition home or self-care (01) ==
PROVIDERS: Emergency Provider Physician Assistant; PCP Nurse Practitioner Family
DX: R07.82 Intercostal pain (principal); R11.0 Nausea; E11.65 Type 2 diabetes mellitus with hyperglycemia; Z79.4 Long term (current) use of insulin; E66.01 Morbid (severe) obesity due to excess calories; Z68.38 Body mass index [BMI] 38.0-38.9, adult; T38.3X6A Underdosing of insulin and oral hypoglycemic [antidiabetic] drugs, initial encounter; Z91.14 Patient's other noncompliance with medication regimen
CPT/HCPCS: 36415; 36416; 71275; 74177; 80053; 81025; 82805; 82962; 93005; 96361; 96365; 96366; 96375; 99285; 81003; 81015; 83735; 84484; 85025; 85610; 85730; 93010; J3475; J3490

== ENCOUNTER 2021-08-14 09:22 | Outpatient (REF) | payer MEDICAID, SELFPAY ==
[2021-08-14 18:06] LABS: COMMENT (LAB VIEW ONLY) 104.81 mg/dL; Microalb ug/mg Crea 4.9 ug/mg Cr
[2021-08-14 19:10] LABS: ALT 66 U/L (14-59); AST 42 U/L (15-37); Albumin 3.7 g/dL (3.4-5.0); Alkaline Phosphatase 193 U/L (46-116); BUN 10 mg/dL (7-18); Bilirubin, Total 0.8 mg/dL (0.2-1.0); CREATININE 0.6 mg/dL (0.55-1.02); Calcium 9.2 mg/dL (8.5-10.1); Calculated LDL 65 mg/dL (<100); Chloride 102 mmol/L (98-107); Cholesterol 134 mg/dL (<200); Glucose 236 mg/dL (74-106); HDL Cholesterol 46 mg/dL (40-60); Potassium 4.4 mmol/L (3.5-5.1); Sodium 140 mmol/L (136-145); Triglyceride 116 mg/dL (<150)
== END 2021-08-14 09:23 | disposition home or self-care (01) ==
LOC: NCHCN 09:22
PROVIDERS: PCP Nurse Practitioner Family; Visit Provider Physician Assistant
DX: E11.9 Type 2 diabetes mellitus without complications (principal); Z79.4 Long term (current) use of insulin
CPT/HCPCS: 80053; 80061; 82043; 82570; 83036

== ENCOUNTER → 2021-12-08 00:09 | Outpatient (CLI) | payer MEDICAID, SELFPAY | PROVIDERS: PCP Nurse Practitioner Family; Visit Provider Obstetrics & Gynecology Gynecology ==

== ENCOUNTER → 2022-01-17 00:27 | Outpatient (CLI) | payer MEDICAID, SELFPAY | PROVIDERS: PCP Nurse Practitioner Family; Visit Provider Obstetrics & Gynecology Gynecology ==

== ENCOUNTER → 2022-04-04 01:44 | Outpatient (CLI) | payer MEDICAID, SELFPAY ==
--- NOTE | 2022-04-04 07:24 | DI.US_ITS ---
Exam(s) US BREAST RT LIMITED MG MAMMO DIAGNOSTIC BI EXAM: MG MAMMO DIAGNOSTIC BI CLINICAL HISTORY: outer aspect R breast lump noted by pt,n63.10,diagnostic. TECHNIQUE: Spot compression digital Mammography views of the bothbreasts with Tomosynthesis followe d by right breast ultrasound. COMPARISON: CT CT CHEST PE ABD PELVIS W from 12/03/2020 US US BREAST RT LIMITED from 04/04/2022. Baseline mammogram. FINDINGS: RIGHT BREAST: Mammography/Tomosynthesis: Patient notes lumps in the lateral aspect of the breast and adjacent chest wall. A marker was placed over this region. Spot compression right MLO view with tomography was performed of the superior right breast. In this area, there is a circumscribed nodule persists central fatty hilum, consistent with lymph node. Ther e is an adjacent smaller lymph node. Masses/Architectural Distortion: None seen. Microcalcifictions: No suspicious pleomorphic-type are seen. Skin Thickening/Nipple Retraction: None. Right breast US: Echotexture: Normal appearance of the glandular tissue. Shadowing: No suspicious foci. Cyst: None. Solid lesions: None seen. Ductal dilation: None. A lymph node is demonstrated with normal architecture in the 11 o'clock position 8 cm from the nipple measuring 9 millimeters in maximal dimension. LEFT BREAST: Mammography/Tomosynthesis: Masses/Architectural Distortion: None seen. Microcalcifictions: No suspicious pleomorphic-type are seen. Skin Thickening/Nipple Retraction: None. IMPRESSION: 1. Right breast: No evidence of malignancy is noted. 2. Left breast: No evidence of malignancy is noted. 3. Unless there is more urgent need, follow-up screening mammography is recommended, as per [employer] guidelines. 4. The findings were discussed with the patient on the date of the examination. BI-RADS Category 1 - Negative Breast Density - Category A - Almost entirely fatty . A negative radiographic report should not delay biopsy if a dominant or clinically suspicious mass is present. Up to ten percent of cancers are not identified on mammography. A negative report may reinforce clinical impression. Adenosis and dense breasts may obscure an underlying neoplasm. False positive reports average 6 to 10%. Patient will receive a letter notifying them of these results.
== END ==
PROVIDERS: PCP Nurse Practitioner Family; Visit Provider Obstetrics & Gynecology Gynecology
DX: N63.11 Unspecified lump in the right breast, upper outer quadrant (principal); R59.0 Localized enlarged lymph nodes
CPT/HCPCS: 76642; 77062; 77066; G0279

== ENCOUNTER 2022-05-18 13:31 | Outpatient (REF) | payer MEDICAID, SELFPAY ==
[2022-05-18 15:51] LABS: Iron 31 ug/dL (50-170)
[2022-05-18 16:04] LABS: Ferritin 54 ng/mL (8-252)
== END 2022-05-18 13:32 | disposition home or self-care (01) ==
LOC: NCHCN 13:31
PROVIDERS: PCP Nurse Practitioner Family; Visit Provider Physician Assistant
DX: G25.81 Restless legs syndrome (principal)
CPT/HCPCS: 82728; 83540

== ENCOUNTER 2023-09-04 12:17 | Outpatient (REF) | payer MEDICAID, SELFPAY ==
[2023-09-04 15:30] LABS: Hemoglobin A1C 6.3 % (<5.7)
[2023-09-04 16:06] LABS: Microalb ug/mg Crea 7.2 ug/mg Cr
[2023-09-04 16:12] LABS: ALT 29 U/L (14-59); AST 24 U/L (15-37); Albumin 3.6 g/dL (3.4-5.0); Alkaline Phosphatase 143 U/L (46-116); Anion Gap 8.4 mmol/L (3-11); BUN 11 mg/dL (7-18); Bilirubin, Total 0.9 mg/dL (0.2-1.0); CO2 26.6 mmol/L (21.0-32.0); CREATININE 0.7 mg/dL (0.55-1.02); Chloride 102 mmol/L (98-107); Estimated GFR 110.67 (mL/min/1.73m2); FREE T4 0.99 ng/dL (0.76-1.46); Glucose 164 mg/dL (74-106); Potassium 4.3 mmol/L (3.5-5.1); Sodium 137 mmol/L (136-145); TSH 2.05 uIU/Ml (0.36-3.74)
== END 2023-09-04 12:18 | disposition home or self-care (01) ==
LOC: NCHCN 12:17
PROVIDERS: Referring Provider Physician Assistant; Visit Provider Physician Assistant
DX: E11.9 Type 2 diabetes mellitus without complications (principal); R00.0 Tachycardia, unspecified
CPT/HCPCS: 80053; 82043; 82570; 83036; 84439; 84443

== ENCOUNTER → 2024-02-04 09:04 | Outpatient (CLI) | payer MEDICAID, SELFPAY ==
--- NOTE | 2024-02-04 13:41 | DI.RAD_ITS ---
Exam(s) XR LUMBAR SPINE COMPLETE EXAM: XR LUMBAR SPINE COMPLETE CLINICAL HISTORY: L SIDE SCIATICA, M54.32. TECHNIQUE: 2D digital imaging was performed. Five views. COMPARISON: No exams were available for comparison FINDINGS: BONES: No fracture or destructive lesion. Vertebral body heights are maintained. Mild facet hypertro phy identified at L5-S1.. DISKS: Intervertebral disc spaces are maintained. Small endplate osteophytes. ALIGNMENT: Mild levoscoliosis. SOFT TISSUE: Normal. IMPRESSION: Mild scoliosis. Mild degenerative changes. DATA REPOSITORY: RADIATION DOSE DELIVERED:
== END ==
PROVIDERS: PCP Physician Assistant; Visit Provider Physician Assistant
DX: M54.32 Sciatica, left side (principal); M41.26 Other idiopathic scoliosis, lumbar region
CPT/HCPCS: 72110

== ENCOUNTER 2025-02-02 16:26 | Outpatient (REF) | payer MEDICAID, SELFPAY ==
[2025-02-02 20:11] LABS: Estimated GFR 114.15 (mL/min/1.73m2)
[2025-02-02 20:38] LABS: ALT 54 U/L (14-59); AST 45 U/L (15-37); Albumin 3.9 g/dL (3.4-5.0); Alkaline Phosphatase 175 U/L (46-116); Anion Gap 12.8 mmol/L (3-11); BUN 7 mg/dL (7-18); Bilirubin, Total 0.9 mg/dL (0.2-1.0); CO2 22.2 mmol/L (21.0-32.0); Calcium 9.3 mg/dL (8.5-10.1); Calculated LDL 87 mg/dL (<100); Chloride 103 mmol/L (98-107); Cholesterol 158 mg/dL (<200); Estimated GFR 114.15 (mL/min/1.73m2); Glucose 162 mg/dL (74-106); HDL Cholesterol 42 mg/dL (>or=50); Potassium 4.2 mmol/L (3.5-5.1); Sodium 138 mmol/L (136-145); Total Protein 7.2 g/dL (6.4-8.2); Triglyceride 148 mg/dL (<150)
[2025-02-02 20:57] LABS: COMMENT (LAB VIEW ONLY) 192.12 mg/dL; Microalb ug/mg Crea 3.5 ug/mg Cr
[2025-02-02 21:46] LABS: Hemoglobin A1C 6.8 % (<5.7)
== END 2025-02-02 16:27 | disposition home or self-care (01) ==
LOC: NCHCN 16:26
PROVIDERS: PCP Physician Assistant; Visit Provider Physician Assistant
DX: E11.9 Type 2 diabetes mellitus without complications (principal)
CPT/HCPCS: 80053; 80061; 82043; 82565; 82570; 83036

== ENCOUNTER 2025-02-20 14:56 | Emergency (ER) | payer MEDICAID, SELFPAY ==
[2025-02-20] VITALS (22 sets, daily range): BP systolic 116–162; BP diastolic 64–99; PULSE 74–86; RESP 8–23; TEMP 36.9; O2SAT 97–100
--- NOTE | 2025-02-20 14:45 | RT.EKG_ITS ---
APPROVED REPORT Exam: Resting ECG Reason for Exam: chestpain Patient Location: E HR:76 bpm ECG Measurements Heart Rate 76 AXIS SD 147 P 5 QRSd 86 QRS 47 QT 388 T 30 QTc 437 Conclusion Sinus rhythm, rate 76 No interval abnormalities No STEMI P wave inversion lead III, unchanged from priors
--- NOTE | 2025-02-20 15:00 | DI.RAD_ITS ---
Exam(s) XR CHEST 2V PA LATERAL EXAM: XR CHEST 2V PA LATERAL CLINICAL HISTORY: Chest pain. TECHNIQUE: 2D digital imaging was performed. COMPARISON: No exams were available for comparison FINDINGS: 2 views: Heart size is normal. The mediastinum is not widened. Lungs are clear. No infiltrates nor pleural effusions. IMPRESSION: No acute pulmonary findings. DATA REPOSITORY: RADIATION DOSE DELIVERED:
--- NOTE | 2025-02-20 15:15 | ED.GENADUL_ITS ---
Discharge Plan Disposition Patient Disposition: Home Condition: Stable Discharge Details Clinical Impression: Chest pain, Heartburn Primary Care Provider: Aaron Deleon ED Provider: Lora Lewis Home Meds and New Rx's Prescriptions: No Action citalopram 40 mg tablet 40 mg PO DAILY Qty: 90 3RF albuterol sulfate [ProAir HFA] 90 mcg/actuation HFA aerosol inhaler 2 puff Inhalation Q4H PRN Qty: 1 1RF Rx Instructions: Use daily while fighting off this cold. (DME) pen needle, diabetic [Pen Needle] 31 gauge x 5/16 needle 1 ea Miscellaneous 6 times daily Qty: 550 3RF Rx Instructions: short needle (DME) FreeStyle Lite Strips strip 1 ea Miscellaneous 5-6 times daily Qty: 450 3RF Rx Instructions: E11.9 maintain A1C of 6.0 fluticasone propionate [Allergy Relief (fluticasone)] 50 mcg/actuation spray,suspension 2 spray CHAN DAILY Qty: 15.8 0RF Rx Instructions: administer into each nostril, daily x 2 weeks Humalog KwikPen Insulin 200 unit/mL (3 mL) insulin pen 20 unit subcut TID MDD 162 UNITS Qty: 15 12RF Rx Instructions: For DM E11.9 to maintain A1C < 7. 15-54 units ac as directed Victoza 2-Brennan 0.6 mg/0.1 mL (18 mg/3 mL) pen injector 1.8 mg subcut DAILY Qty: 6 12RF Rx Instructions: magnesium oxide 400 MG capsule 400 mg PO DAILY Qty: 90 Ascorbic Acid [Vitamin C] 500 MG capsule 500 mg PO DAILY ferrous sulfate 325 MG tablet 325 mg PO DAILY Rx Instructions: per Brionna Bragg, Sleep Study pioglitazone [Actos] 15 MG tablet 15 mg PO DAILY Patient Comments: [facility] [place]/Endocrine - Dejuan Vaz MD 02/05/18 insulin glargine [Lantus Solostar U-100 Insulin] 100 unit/mL (3 mL) insulin pen See Rx Instructions Sub-Q BID MDD 95 units Qty: 15 3RF Dose Instruction: Take 40 units AM and 40 units PM Sub-Q BID; For DM E11.9 to maintain A1C < 7 As directed Rx Instructions: Take 40 units AM and 40 units PM Sub-Q BID; For DM E11.9 to maintain A1C < 7 atorvastatin 40 mg tablet 40 mg PO DAILY Qty: 90 3RF metformin 1,000 mg tablet 1,000 mg PO BID Qty: 180 3RF omeprazole 20 mg capsule,delayed release(DR/EC) 20 mg PO DAILY Qty: 90 3RF Rx Instructions: dx: heartburn cyanocobalamin (vitamin B-12) 500 mcg tablet 500 mcg PO DAILY Patient Comments: 08/11/19 noted from [facility] [place] GI note norethindrone (contraceptive) [Deblitane] 0.35 mg tablet See Rx Instructions .ROUTE .COMPLEX Qty: 84 3RF Dose Instruction: TAKE ONE TABLET BY MOUTH EVERY DAY Rx Instructions: TAKE ONE TABLET BY MOUTH EVERY DAY ibuprofen 600 MG tablet 600 mg PO Q6H PRN PRN (Reason: Pain) Qty: 30 0RF Discharge Instructions Instructions: Chest Pain, Adult ED Additional Instructions: You were seen in the emergency department today for evaluation of chest pressure. In our department you had a full physical examination performed, had laboratory studies that were reassuring and so showed no sign of damage to your heart, had an EKG that was normal and an x-ray that did not show any signs of problems with your lungs or your ribs. You received medication which improved your pain. Unfortunately, we are sometimes unable to determine the exact cause of all symptoms in the emergency department setting. It is possible that this is an atypical presentation of your GERD/heartburn, and I do recommend that you continue your omeprazole and use Tums or zxbx-ncw-qozxtgo liquid medication such as Maalox, Mylanta, or Pepto-Bismol for ongoing symptoms. You can also use Tylenol, 1000 mg 6 times per day as needed. Reasons to come back to the emergency department include fever or chills, sudden change or worsening of your chest pain, shortness of breath, or any other symptoms that cause you concern. Please contact your primary care provider on Saturday to schedule a follow-up appointment to discuss this visit and any symptoms that change, worsen, or persist. Thank you for allowing us to be part of your care. HPI General Mode of arrival: ambulatory . Date/Time Provider Initiated Documentation: 02/20/25 14:56 . Limitations to Documentation: no limitations . Information obtained by: patient and old records reviewed . HPI Narrative: This is a 44-year-old female patient with a history of diabetes, GERD, presenting for evaluation of chest pain and lightheadedness. The patient reports that her pain started around an hour or so ago, while at rest. It feels like a heartburn ache, but is located slightly for the left than typical for her. States that is associated with nausea and lightheadedness. The pain does not move, is not reproducible with palpation, movement, position, or deep breath. She has not tried any medications for management of the symptoms. Denies recent fever or chills, shortness of breath or cough, but states that she recently increased her Ozempic and this has caused a decrease in appetite and p.o. intake. Denies bowel or bladder changes, has a history of cholecystectomy. Her partner has a vasectomy and she has no concern about at this time. Has no calf swelling or leg tenderness, does not take hormonal medications, has a family history of cardiac in the 60s and her grandfather, no personal cardiac or thromboembolic history. Related Data Home Medications ?Medication ?Instructions ?Recorded ?Confirmed magnesium oxide 400 mg PO DAILY #90 tabs 11/07/22 ibuprofen 600 mg tablet 600 mg PO Q6H PRN PRN Pain # 30 tabs 06/20/16 11/07/22 Ascorbic Acid [Vitamin C] 500 mg PO DAILY 11/18/1704/22 ferrous sulfate 325 mg (65 mg 325 mg PO DAILY 11/18/17 11/07/22 iron) tablet pioglitazone 15 mg tablet (Actos) 15 mg PO DAILY 02/0611/07/22 fluticasone propionate 50 2 spray intranasal DAILY #15 .8 04/11/18 11/07/22 mcg/actuation nasal grams spray,suspension (Allergy Relief (fluticasone)) albuterol sulfate 90 mcg/actuation 2 puff inhalation Q 4H PRN ##1 06/09/18 11/07/22 aerosol inhaler (ProAir HFA) blood sugar diagnostic (FreeStyle #450 strips 06/09/18 11/07/22 Lite Strips) pen needle, diabetic 31 gauge x #550 ea 06/09/1811/07/16 (Pen Needle) insulin glargine 100 unit/mL (3 See Rx Instructions gaston bcut BID #15 09/05/18 11/07/22 mL) subcutaneous pen (Lantus mL Solostar U-100 Insulin) atorvastatin 40 mg tablet 40 mg PO DAILY #90 tab-caps 09/29/18 11/07/22 citalopram 40 mg tablet 40 mg PO DAILY #90 tabs 09/3011/07/22 insulin lispro 200 unit/mL (3 mL) 20 unit (0.1 mL) sub cut TID #15 mL 12/02/18 11/07/22 subcutaneous pen (Humalog KwikPen U-200 Insulin) liraglutide 0.6 mg/0.1 mL (18 mg/3 1.8 mg (0.3 mL) sub cut DAILY #6 mL 12/02/18 11/07/22 mL) subcutaneous pen injector (OpenGov Solutionstoza 2-Brennan) metformin 1,000 mg tablet 1,000 mg PO BID #180 tab-cap s 04/27/19 11/07/22 omeprazole 20 mg capsule,delayed 20 mg PO DAILY #90 ta bs 05/14/19 11/07/22 release cyanocobalamin (vitamin B-12) 500 500 mcg PO DAILY 05/2011/07/22 mcg tablet norethindrone (contraceptive) 0.35 See Rx Instructions .Route 08/03/24 mg tablet (Deblitane) .COMPLEX #84 tabs Previous Rx's ?Medication ?Instructions ?Recorded ibuprofen 600 mg tablet 600 mg PO Q6H PRN PRN Pain # 30 tabs 06/20/16 fluticasone propionate 50 2 spray intranasal DAILY #15 .8 04/11/18 mcg/actuation nasal grams spray,suspension (Allergy Relief (fluticasone)) albuterol sulfate 90 mcg/actuation 2 puff inhalation Q 4H PRN ##1 06/09/18 aerosol inhaler (ProAir HFA) blood sugar diagnostic (FreeStyle #450 strips 06/09/18 Lite Strips) pen needle, diabetic 31 gauge x #550 ea 06/09/1811/13 (Pen Needle) insulin glargine 100 unit/mL (3 See Rx Instructions gaston bcut BID #15 09/05/18 mL) subcutaneous pen (Lantus mL Solostar U-100 Insulin) atorvastatin 40 mg tablet 40 mg PO DAILY #90 tab-caps 09/29/18 citalopram 40 mg tablet 40 mg PO DAILY #90 tabs 09/30 10/17 insulin lispro 200 unit/mL (3 mL) 20 unit (0.1 mL) sub cut TID #15 mL 12/02/18 subcutaneous pen (Humalog KwikPen U-200 Insulin) liraglutide 0.6 mg/0.1 mL (18 mg/3 1.8 mg (0.3 mL) sub cut DAILY #6 mL 12/02/18 mL) subcutaneous pen injector (Victoza 2-Brennan) metformin 1,000 mg tablet 1,000 mg PO BID #180 tab-cap s 04/27/19 omeprazole 20 mg capsule,delayed 20 mg PO DAILY #90 ta bs 05/14/19 release norethindrone (contraceptive) 0.35 See Rx Instructions .Route 08/03/24 mg tablet (Deblitane) .COMPLEX #84 tabs Allergies Allergy/AdvReac Type Severity Reaction Status Date / Time glipizide AdvReac Intermediate nausea, Verified 11/07/22 15:26 vomiting, diarrhea prazosin AdvReac Unknown heart Verified 11/07/22 15:26 palpitations General Stated Complaint: Chest Pain FELIBERTO: 3 Exam Narrative Exam Narrative: Gen: Awake and alert, in no apparent distress HEENT: Non-icteric sclera Neck: Supple Lungs: No apparent respiratory distress, normal respiratory effort. Lung sounds clear and equal bilaterally CV: Appears well perfused, heart with regular rate and rhythm, strong distal pulses, chest wall not tender to palpation. No overlying skin changes. Abdomen: Non-distended, soft, nontender without rigidity, rebound, or guarding MSK: Moves 4 extremities without apparent limitation in ROM, no unilateral calf swelling or tenderness Skin: Visualized skin without rashes, cyanosis. Neuro: Normal Gait, no obvious focal deficits or facial asymmetry. Speaks in full, clear sentences. Psych: Appropriate for situation. Course Vital Signs Vital signs: Vital Signs Temperature 36.9 C 02/20/25 14:59 Pulse 76 02/20/25 14:59 Respiratory Rate 20 02/20/25 14:59 Blood Pressure 144/76 H 02/20/25 14:59 Pulse Oximetry 99 02/20/25 14:59 Temperature 36.9 C 02/20/25 14:59 Temperature Source Oral 02/20/25 14:59 Pulse 76 02/20/25 14:59 Respiratory Rate 20 02/20/25 15:06 Respiratory Effort Normal 02/20/25 15:06 Respiratory Depth Normal 02/20/25 15:06 Respiratory Pattern Normal 02/20/25 15:06 Blood Pressure 144/76 H 02/20/25 14:59 Blood Pressure Position Sitting 02/20/25 14:59 Pulse Oximetry 99 02/20/25 14:59 Oxygen Delivery Method Room Air 02/20/25 14:59 Oxygen Flow Rate 0 02/20/25 14:59 Medical Decision Making This is a 44-year-old female patient presenting for evaluation of chest pain with nausea and lightheadedness. My differential includes but is not limited to ACS including STEMI, NSTEMI, unstable angina, certainly considered arrhythmia, pericarditis/myocarditis, aortic pathology. Considered pulmonary abnormalities including pneumonia, bronchitis, pleural effusion, pulmonary edema, reactive airway disease, pneumothorax. The patient is without tachycardia, hypoxia, or a pleuritic component to his pain to significantly increase my concern for pulmonary embolism, and the patient does meet PERC criteria for PE rule out. No GI symptoms or vomiting to suggest Boerhaave's, esophagitis, peptic ulcer disease, pancreatitis. Considered musculoskeletal pathologies including costoc hondritis, chest wall pain. EKG shows a sinus rhythm without ischemia, interval abnormality, or ectopy. We will provide the patient with Tylenol and Zofran for initial symptomatic management, and obtain labs to include CBC, CMP, magnesium, troponin, and lipase. Will obtain a chest x-ray. - I independently interpreted the laboratory studies, which show no significant leukocytosis, anemia, or thrombocytopenia. The chemistry panel is without evidence of electrolyte abnormality, kidney dysfunction, or liver injury. There is a very slight elevation in the bilirubin to 1.1, which has been inter mittently demonstrated on prior laboratory studies. The patient was made aware of this finding, in the absence of obstructive pathology I do not see an indication to proceed with further workup of this finding. Initial troponin undetectable, 1 hour delta obtained given the short duration of symptoms, with no significant interval increase appreciated. Lipase is low. Chest x-ray reviewed by myself, and shows no pulmonary abnormalities to explain the patient's symptoms. She had improvement in her symptoms after the Tylenol, I did provide her with Mylanta which provided further improvement. At the time of reassessment the patient reports that she just feels tired, I am most suspicious for a musculoskeletal etiology versus GERD/heartburn. She has wzgo-dej-pafghst medications at home to manage both of these conditions, and has the ability to follow-up with her primary care for reassessment and ongoing workup and management of her chest pain. At this time, the patient has had a full medical evaluation and is safe for discharge to home. They are hemodynamically stable, ambulatory, and tolerating PO. They are understanding of the follow-up plan and return precautions. They left our facility without incident. 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 (Acute 08/02/16) Bx: 11/09/2015 [facility] [place] Hepatology follows 08/11/19 f/u [facility] [place] Hepatology Diabetes mellitus (Acute 10/15/12) A1C goal 7; Diagnosed in HS Hyperlipidemia (Acute 12/26/12) PCEq CV risk 1.7% Panic disorder (Acute 04/08/12) Herpes simplex (Acute 06/15/13) Types 1 2, confirmed serology testing 06/09/13 Heartburn (Acute 02/11/13) Long-term PPI Elevated transaminase level (Acute 06/02/15) Asthma (Acute 07/20/13) ?Mild intermittent PFT's 09/17/13 FEV1 NL FEF25/75 75%; mild obstructive Anxiety (Acute 04/08/12) Dr. Gonzalez Medical History Elev transaminase/LDH (07/11/11) [id number] GI FL: Fatty Liver, AST 113, ALT 176, Statin made worse Iron studies & Viral serologies NEG [facility] [place] GI 10/2015 - liver biopsy confirmed non-ETOH cirrhosis Hot flashes (05/10/14) Mg++ supplementation helped/Dr. Lincoln Viral syndrome Surgical History H/O LEEP S/P cholecystectomy S/P tonsillectomy and adenoidectomy Family History Maternal Grandfather Myocardial infarction Lung cancer Paternal Grandmother Colon cancer Father COPD (chronic obstructive pulmonary disease) Maternal Grandmother Stroke Social History Smoking/Tobacco Use Status: Never Smoking risk assessment performed?: Yes Alcohol Intake: never Drug use: Never Substance use type: does not use Adopted: No Foster care: No Household members: family, children and other Details: lives w/ mom and dad and twins 5 at home Housing: house Number of Children: 2 current occupation: [employer] What type of physical activity do you participate in: walking Seatbelt use: always Do you feel safe at home: Yes Do you feel safe in your relationship?: Yes Female Reproductive History Menstrual control method: pills History History 1 Para 2 Hx # Term Pregnancies Multiple births 2 Hx # Pregnancies Ectopic pregnancies AB induced Hx Number of Living Children AB spontaneous
[2025-02-20] MEDS: Ondansetron 4 MG/2 ML VIAL IVP (15:29)
[2025-02-20] MEDS: Acetaminophen 500 MG TAB 1000 MG PO (15:29)
[2025-02-20 15:31] LABS: Abs Immature Grans 0.04 10^3/uL (0.0-0.06); HCT 41.8 % (36.0-46.0); HGB 13.8 g/dL (11.2-15.7); Immature Grans % 0.5 %; MCH 29.6 pg (27.0-33.0); MCHC 33.0 % (32.0-36.0); MCV 90 fL (80-95); MPV 9.1 fL (8.0-11.0); Platelet Count 333 10^3/uL (130-400); RBC 4.66 10^6/uL (3.93-5.22); RDW 12.7 % (11.7-14.6); RDW-SD 41.7 fL; WBC 8.04 10^3/uL (4.4-10.8)
[2025-02-20 15:48] LABS: ALT 36 U/L (14-59); AST 28 U/L (15-37); Albumin 4.0 g/dL (3.4-5.0); Alkaline Phosphatase 148 U/L (46-116); Anion Gap 8.6 mmol/L (3-11); BUN 8 mg/dL (7-18); Bilirubin, Total 1.1 mg/dL (0.2-1.0); CO2 27.4 mmol/L (21.0-32.0); Calcium 9.7 mg/dL (8.5-10.1); Chloride 103 mmol/L (98-107); Estimated GFR 109.98 (mL/min/1.73m2); Glucose 95 mg/dL (74-106); Lipase 37 U/L (<78); Magnesium 2.0 mg/dL (1.8-2.4); Potassium 3.8 mmol/L (3.5-5.1); Sodium 139 mmol/L (136-145); Total Protein 7.9 g/dL (6.4-8.2)
[2025-02-20 15:53] LABS: Troponin I < 4 ng/L (<or=51)
[2025-02-20] MEDS: Mylanta Suspension 30 ML CUP PO (16:05)
[2025-02-20 16:30] LABS: Troponin I 4 ng/L (<or=51)
== END 2025-02-20 16:49 | disposition home or self-care (01) ==
LOC: ER 16:59
PROVIDERS: Emergency Provider Emergency Medicine; PCP Physician Assistant
DX: R07.9 Chest pain, unspecified (principal); R11.0 Nausea; R42 Dizziness and giddiness
CPT/HCPCS: 99284 ×2; 96374; 80053; 83690; 93005; 71046; 83735; 84484; 85025; 93010; J2405